=== PATIENT | female | born 1945 | race Caucasian/White ===

== ENCOUNTER → 2016-08-09 | Outpatient (CLI) | payer MEDICARE, OTHER ==
[~2016-08-09] MED LIST: ASPI1TAB83 PO; ATOR-24 PO; CORN1POW2 PO; DOXE10CA PO; DOXY100C76 PO; FURO-85 PO; HYDR-5688 PO; LEVO100T7 PO; LEVO88TA3 PO; METO25TA56 PO; NAPR1TAB9 PO; POLY335025 PO; POTA8CAP6 PO; PRM625 PO; RSTOPS OPB; ZOLP10TA6 PO; [UNRECOGNIZED DRUG - CODE] IV; [UNRECOGNIZED DRUG - CODE] TOP
[2016-08-09 10:17] LABS: ALT/SGPT 27 U/L (12-78); BLOOD UREA NITROGEN 13 mg/dl (7-18); CALCIUM 8.8 mg/dl (8.5-10.1); CARBON DIOXIDE 27 mmol/L (21-32); CHLORIDE 97 mmol/L (98-107); CHOLESTEROL 110 mg/dl (0-200); GLUCOSE 83 mg/dl (70-99); SODIUM 132 mmol/L (136-145); TRIGLYCERIDES 99 mg/dl (0-150); VERY LOW DENSITY LIPOPROT CALC 20 mg/dl
[2016-08-09 10:21] LABS: HEMATOCRIT 36.3 % (37-47); MEAN CELL VOLUME 90.3 fL (80-100); MEAN CORPUSCULAR HEMOGLOBIN 31.1 pg (25-34); MEAN CORPUSCULAR HGB CONC 34.4 g/dl (32-36); MEAN PLATELET VOLUME 10.7 fL (7.4-10.4); PLATELET COUNT 198 K/uL (130-400); RED BLOOD COUNT 4.02 M/uL (4.2-5.4); WHITE BLOOD COUNT 2.38 K/uL (4.8-10.8)
[2016-08-09 10:26] LABS: ALB/GLOB RATIO 0.7 (0.9-2); ALKALINE PHOSPHATASE 90 U/L (45-117); AST/SGOT 29 U/L (15-37); CHOLESTEROL/HDL RATIO 1.8; HDL CHOLESTEROL 60 mg/dl; LDL CHOLESTEROL CALCULATED 30 mg/dl
[2016-08-09 10:39] LABS: BASO % 0.4 %; BASO ABS # 0.01 K/uL (0-0.2); COMPLETE YES; EOS % 1.3 %; LYMPH % 52.5 %; LYMPH ABS # 1.25 K/uL (1.2-3.4); MONO % 9.7 %; NEUT % 36.1 %
== END | disposition home or self-care (01) ==
LOC: C.LAB1850 08:43
PROVIDERS: ATTEND Internal Medicine
DX: G61.81 Chronic inflammatory demyelinating polyneuritis (principal); I25.10 Atherosclerotic heart disease of native coronary artery without angina pectoris; E55.9 Vitamin D deficiency, unspecified; E03.9 Hypothyroidism, unspecified

== ENCOUNTER → 2016-10-28 | Outpatient (CLI) | payer MEDICARE, OTHER ==
[~2016-10-28] MED LIST changes: +BROM0.07; +CYCL0.052 OP; +DIFL0.0519; +PRMVC PV
--- NOTE | 2016-10-28 16:06 | MAMMOGRAPHY REPORT ---
BILATERAL DIGITAL SCREENING MAMMOGRAM WITH CAD: 10/28/2016 CLINICAL HISTORY: Routine screening. Patient has no complaints. TECHNIQUE: Bilateral CC and MLO views were obtained. Current study was also evaluated with a Comput er Aided Detection (CAD) system. COMPARISON: Comparison is made to exams dated: 07/27/2014 mammogram, 07/26/2013 mammogram, 07/24/2012 mira mogram, 07/22/2011 mammogram, 07/19/2010 mammogram, and 07/18/2009 mammogram - [facility]. BREAST COMPOSITION: The tissue of both breasts is heterogeneously dense, which may obscure small ma sses. FINDINGS: The parenchymal pattern is unchanged. No developing mass, architectural distortion or clu ster of suspicious microcalcifications is seen in either breast. IMPRESSION: ACR BI-RADS CATEGORY 2: BENIGN There is no mammographic evidence of malignancy. A 1 year screening mammogram is recommended. The p atient will receive written notification of the results. Approximately 10% of breast cancers are not detected with mammography. A negative mammographic repor t should not delay biopsy if a clinically suggestive mass is present. Iona Lima M.D. ay/:10/28/2016 15:27:28 Spinner Operator: Trina PERALTA(R)(M), [facility] letter sent: Normal 1/2 BI-RADS Code: ACR BI-RADS Category 2: Benign
== END | disposition home or self-care (01) ==
LOC: C.MAMM 14:58
PROVIDERS: ATTEND Obstetrics & Gynecology
DX: Z12.31 Encounter for screening mammogram for malignant neoplasm of breast (principal); N39.0 Urinary tract infection, site not specified

== ENCOUNTER → 2016-10-28 | Outpatient (CLI) | payer MEDICARE, OTHER | END | disposition home or self-care (01) | LOC: C.LABSPEC 17:15 | PROVIDERS: ATTEND Nurse Practitioner Family | DX: N39.0 Urinary tract infection, site not specified (principal) ==

== ENCOUNTER → 2016-11-04 | Outpatient (CLI) | payer MEDICARE, OTHER | END | disposition home or self-care (01) | LOC: C.LAB 10:06 | PROVIDERS: ATTEND Nurse Practitioner Family | DX: N39.0 Urinary tract infection, site not specified (principal); M35.9 Systemic involvement of connective tissue, unspecified; E03.9 Hypothyroidism, unspecified; E78.5 Hyperlipidemia, unspecified ==

== ENCOUNTER → 2016-11-27 | Outpatient (CLI) | payer MEDICARE, OTHER | END | disposition home or self-care (01) | LOC: C.LABSPEC 10:27 | PROVIDERS: ATTEND Urology | DX: R35.1 Nocturia (principal) ==

== ENCOUNTER → 2016-12-19 | Outpatient (CLI) | payer MEDICARE, OTHER ==
[~2016-12-19] MED LIST changes: -BROM0.07; -CYCL0.052 OP; -DIFL0.0519; -PRMVC PV
[2016-12-19 09:40] LABS: HEMATOCRIT 35.4 % (37-47); MEAN CELL VOLUME 91.9 fL (80-100); MEAN CORPUSCULAR HEMOGLOBIN 31.2 pg (25-34); MEAN CORPUSCULAR HGB CONC 33.9 g/dl (32-36); MEAN PLATELET VOLUME 10.4 fL (7.4-10.4); PLATELET COUNT 181 K/uL (130-400); RED BLOOD COUNT 3.85 M/uL (4.2-5.4)
[2016-12-19 09:58] LABS: BASO % 0.4 %; BASO ABS # 0.01 K/uL (0-0.2); COMPLETE YES; EOS % 1.7 %; LARGE PLATELETS 1+; LYMPH % 48.8 %; LYMPH ABS # 1.17 K/uL (1.2-3.4); MONO % 9.6 %; NEUT % 39.5 %
[2016-12-19 10:00] LABS: ALT/SGPT 27 U/L (12-78); BLOOD UREA NITROGEN 9 mg/dl (7-18); BUN/CREATININE RATIO 12.2 (10-20); CALCIUM 9.1 mg/dl (8.5-10.1); CARBON DIOXIDE 29 mmol/L (21-32); CHLORIDE 99 mmol/L (98-107); CHOLESTEROL 97 mg/dl (0-200); CREATININE 0.74 mg/dl (0.60-1.20); GLUCOSE 85 mg/dl (70-99); POTASSIUM 4.2 mmol/L (3.5-5.1); SODIUM 133 mmol/L (136-145); TRIGLYCERIDES 103 mg/dl (0-150); VERY LOW DENSITY LIPOPROT CALC 21 mg/dl
[2016-12-19 10:10] LABS: ALB/GLOB RATIO 0.7 (0.9-2); ALKALINE PHOSPHATASE 94 U/L (45-117); AST/SGOT 32 U/L (15-37); HDL CHOLESTEROL 49 mg/dl; LDL CHOLESTEROL CALCULATED 27 mg/dl; THYROID STIMULATING HORMONE 0.903 uIu/ml (0.300-4.500)
== END | disposition home or self-care (01) ==
LOC: C.LAB1850 08:16
PROVIDERS: ATTEND Internal Medicine
DX: Z11.59 Encounter for screening for other viral diseases (principal); E03.9 Hypothyroidism, unspecified; E78.5 Hyperlipidemia, unspecified; M35.9 Systemic involvement of connective tissue, unspecified

== ENCOUNTER → 2017-02-06 | Outpatient (CLI) | payer MEDICARE, OTHER ==
[2017-02-06 11:33] LABS: HEMATOCRIT 35.6 % (37-47); MEAN CELL VOLUME 90.6 fL (80-100); MEAN CORPUSCULAR HEMOGLOBIN 30.5 pg (25-34); MEAN CORPUSCULAR HGB CONC 33.7 g/dl (32-36); MEAN PLATELET VOLUME 10.6 fL (7.4-10.4); PLATELET COUNT 180 K/uL (130-400); RED BLOOD COUNT 3.93 M/uL (4.2-5.4); WHITE BLOOD COUNT 2.62 K/uL (4.8-10.8)
[2017-02-06 11:55] LABS: COMPLETE YES; EOSINOPHIL % 0.9 %; LYMPH ABS # 0.64 K/uL (1.2-3.4); LYMPHOCYTE % 24.3 %; NEUTROPHILS % 46.1 %; VARIANT LYM ABS # 0.48 K/uL; VARIANT LYMPHOCYTE % 18.3 %
== END | disposition home or self-care (01) ==
LOC: C.LAB 10:57
PROVIDERS: ATTEND Internal Medicine
DX: D72.819 Decreased white blood cell count, unspecified (principal)

== ENCOUNTER → 2017-02-26 | Outpatient (CLI) | payer MEDICARE, OTHER ==
[~2017-02-26] MED LIST changes: -DOXE10CA PO
== END | disposition home or self-care (01) ==
LOC: C.PAPS 09:01
PROVIDERS: ATTEND Obstetrics & Gynecology
DX: Z12.4 Encounter for screening for malignant neoplasm of cervix (principal)

== ENCOUNTER → 2017-05-20 | Day surgery (SDC) | payer MEDICARE, OTHER ==
[2017-04-24 12:22] VITALS: Ht 165.1 cm; Wt 68.2 kg
[~2017-05-20] VITALS: Ht 165.1 cm; Wt 68.2 kg
[~2017-05-20] MED LIST changes: +500ML BSS 0.3ML EPI 1:1000PF IRRIG ONE; +ACETAMINOPHEN 325 MG TAB PO PRN; +AMVISC PLUS 0.8ML SYRINGE INT OCU ONE; +ATROPINE SULFATE 0.1 MG/ML 5ML SYR IV PRN; +BSS FLUSH ONE; +CYCL0.052 OP; -DOXY100C76 PO; +EpHEDrine SULFATE INJ 50 MG/ML AMP IV PRN; +EpINEphrine INJ 1MG/ML AMP 1 MG/ML AMP ONE; +LACTATED RINGER'S 1000ML 500 ML IV SCH; +LIDOCAINE 3.5% OPH GEL PER APPLICATION CHARGE ONE; +LIDOCAINE HCL 1% MPF 2 ML VIAL ONE; +MIDAZOLAM HCL 1 MG/ML 2ML VIAL ONE; -NAPR1TAB9 PO; +ONDANSETRON INJ 2 MG/ML 2 ML VIAL IV PRN; +PHENYLEPHRINE HCL 10% OP SOLN PER DROP CHARGE OPR SCH; +POVIDONE-IODINE OP SOLN 30 ML BTL ONE; -PRM625 PO; +PRMVC PV; +PROPARACAINE 0.5% OP SOLN PER DROP CHARGE OPR SCH; -RSTOPS OPB; +TOBRAMYCIN/DEXAMETHASONE OPH OINT PER APPLN CHARGE ONE
[2017-05-20] MEDS: PHENYLEPHRINE HCL 2.5% OP SOLN PER DROP CHARGE OPR SCH ×2 (06:45→06:55)
[2017-05-20] MEDS: TROPICAMIDE 1% OP SOLN PER DROP CHARGE OPR SCH ×2 (06:47→06:56)
[2017-05-20] MEDS: CYCLOPENTOLATE HCL 1% OP SOLN PER DROP CHARGE OPR SCH ×2 (06:48→06:57)
[2017-05-20] MEDS: KETOROLAC 0.5% OP SOLN PER DROP CHARGE OPR SCH ×2 (06:49→06:58)
[2017-05-20] MEDS: GATIFLOXACIN OP SOLN PER DROP CHARGE OPR SCH ×2 (07:09→07:11)
--- NOTE | 2017-05-20 07:11 | History & Physical Bridge - SC ---
H&P Re-Evaluation Bridge Note: I have examined the patient, reviewed the History & Physical and in the interval since the performance of the History & Physical I have noted the following changes of clinical significance: Diagnosis: Right Cataract Procedure: Right Cataract Removal with Lens Implant No changes noted
[2017-05-20 07:36] VITALS: BP 133/68; PULSE 58; TEMP 36.4; O2SAT 100
--- NOTE | 2017-05-20 07:38 | Discharge Instructions-SurgCtr ---
Discharge Instructions Date of Service May 20, 2017. Visit Reason for Visit: Cataract Right Eye Discharge Discharge Diagnosis / Problem: cataract Discharge Goals Goal(s): Improve function Activity Recommendations Activity Limitations: per Instructions/Follow-up section Anesthesia . Post Anesthesia Instructions: If you have had General Anesthesia or IV Sedation: * Do not drive today. * Resume driving when surgeon permits. * Do not make important decisions or sign legal documents today. * Call surgeon for: 1. Temperature elevations greater than 101 degrees F. 2. Uncontrollable pain. 3. Excessive bleeding. 4. Persistent nausea and vomiting. 5. Medication intolerance (nausea, vomiting or rash). * For nausea and vomiting use only clear liquids such as: tea, soda, bouillon until nausea subsides, then gradually increase diet as tolerated. * If you have any concerns or questions, call your surgeon's office. If physician is unavailable and it is an emergency, call 911 or go to the nearest emergency room. . Diet Recommendations Home Diet: resume previous diet Procedures Procedures Performed: Right Cataract Phacoemulsification With Intraocular Lens Implant Pending Studies Studies pending at discharge: no Medical Emergencies . Who to Call and When: Medical Emergencies: If at any time you feel your situation is an emergency, please call 911 immediately. . Non-Emergent Contact Non-Emergency issues call your: Grain Drier Operator . . "Provider Documentation" section prepared by Hermilo Covarrubias. .
--- NOTE | 2017-05-20 07:39 | [facility] Operative Report ---
Operative Report Date of Service May 20, 2017. Operative Report 1. PREOPERATIVE DIAGNOSIS: Cataract of the right eye. 2. POSTOPERATIVE DIAGNOSIS: Same. 3. PROCEDURE: Phacoemulsification with intraocular lens implantation of the right eye. SURGEON: Dr. Hermilo Covarrubias. ANESTHESIA: Topical Lidocaine gel, 1% Non- Preserved intracameral Lidocaine, and monitored intravenous sedation. INDICATIONS FOR THE PROCEDURE: The patient is a 72 - year-old female with a history of cataract of the right eye causing significant visual impairment. The details of the proposed procedure were explained to the patient who asked appropriate questions and following discussion of all risks, benefits and alternatives agreed to have the procedure done. 4. OPERATION AND FINDINGS: DESCRIPTION OF PROCEDURE: After informed consent was obtained, the patient was brought to the Operating Room at the [facility]. The patient was placed in a supine position and then the right eye was prepped and draped in the usual sterile fashion for intraocular surgery. A drop of topical Lidocaine gel was placed in the operative eye. A wire lid speculum was then placed in the fornices. A corneal paracentesis was then created temporally. The Non-Preserved Lidocaine was then instilled into the anterior chamber. The anterior chamber was then pressurized with viscoelastic. A 2.0 mm clear corneal incision was then created temporally. A cystotome was inserted into the anterior chamber and used to create a tear in the anterior lens capsule. This capsular tear was then used to create a small flap and the flap was dragged in a counterclockwise direction in order to create a continuous curvilinear capsulorrhexis. Hydrodissection was accomplished with balanced salt solution. Phacoemulsification of the lens nucleus was then performed in a standard [id number] technique. The phaco time was 24 seconds with an average power of 7 %. The remaining cortical material was removed using irrigation aspiration. The capsular bag was then filled with viscoelastic. A [employer] MI60L +15.0 diopters lens was then loaded into the injector and injected into the capsular bag. The remaining viscoelastic was removed with the irrigation aspiration handpiece. The wound was hydrated and then checked and found to be watertight. The intraocular pressure was checked and found to be adequate. The wire lid speculum was removed and the patient's face was cleaned and dried. TobraDex ointment was placed in the inferior fornix. The patient was discharged to the Recovery Room having tolerated the procedure well. There were no complications. The patient will be seen tomorrow in the office for follow-up. I attest to the content of the Intraoperative Record and any orders documented therein. Any exceptions are noted below.
--- NOTE | 2017-05-20 08:07 | Anesthesia Progress Nt - [facility] ---
Anesthesia Post Op Note Date & Time May 20, 2017 at 08:06 Vital Signs Pain Intensity: 0 Vital Signs Past 12 Hours Date Time Temp Pulse Resp B/P (MAP) Pulse Ox O2 Delivery O2 Flow Rate FiO2 05/20/17 07:36 36.4 58 16 133/68 (89) 100 Room Air 05/20/17 06:35 36.7 68 18 155/84 (107) 100 Room Air Notes Mental Status: alert / awake / arousable, participated in evaluation Pt Amnestic to Procedure: Yes Nausea / Vomiting: adequately controlled Pain: adequately controlled Airway Patency, RR, SpO2: stable & adequate BP & HR: stable & adequate Hydration State: stable & adequate Anesthetic Complications: no major complications apparent
== END | disposition home or self-care (01) ==
LOC: X.SURG 06:17
PROVIDERS: ATTEND Ophthalmology
DX: H26.9 Unspecified cataract (principal); I10 Essential (primary) hypertension; E03.9 Hypothyroidism, unspecified; E78.5 Hyperlipidemia, unspecified; I25.10 Atherosclerotic heart disease of native coronary artery without angina pectoris; Z95.1 Presence of aortocoronary bypass graft; K21.9 Gastro-esophageal reflux disease without esophagitis; I25.2 Old myocardial infarction; Z88.2 Allergy status to sulfonamides; Z88.1 Allergy status to other antibiotic agents; Z98.890 Other specified postprocedural states; Z98.818 Other dental procedure status; Z90.89 Acquired absence of other organs; Z80.2 Family history of malignant neoplasm of other respiratory and intrathoracic organs; Z80.7 Family history of other malignant neoplasms of lymphoid, hematopoietic and related tissues; Z83.3 Family history of diabetes mellitus

== ENCOUNTER → 2017-09-01 | Outpatient (CLI) | payer MEDICARE, OTHER ==
[~2017-09-01] MED LIST changes: -500ML BSS 0.3ML EPI 1:1000PF IRRIG ONE; -ACETAMINOPHEN 325 MG TAB PO PRN; -AMVISC PLUS 0.8ML SYRINGE INT OCU ONE; -ATROPINE SULFATE 0.1 MG/ML 5ML SYR IV PRN; +BROM0.07; -BSS FLUSH ONE; +DIFL0.0519; -EpHEDrine SULFATE INJ 50 MG/ML AMP IV PRN; -EpINEphrine INJ 1MG/ML AMP 1 MG/ML AMP ONE; -LACTATED RINGER'S 1000ML 500 ML IV SCH; -LIDOCAINE 3.5% OPH GEL PER APPLICATION CHARGE ONE; -LIDOCAINE HCL 1% MPF 2 ML VIAL ONE; -MIDAZOLAM HCL 1 MG/ML 2ML VIAL ONE; -ONDANSETRON INJ 2 MG/ML 2 ML VIAL IV PRN; -PHENYLEPHRINE HCL 10% OP SOLN PER DROP CHARGE OPR SCH; -POVIDONE-IODINE OP SOLN 30 ML BTL ONE; -PROPARACAINE 0.5% OP SOLN PER DROP CHARGE OPR SCH; -TOBRAMYCIN/DEXAMETHASONE OPH OINT PER APPLN CHARGE ONE
[2017-09-01 09:56] LABS: HEMATOCRIT 33.7 % (37-47); HEMOGLOBIN 11.7 g/dL (12.0-16.0); MEAN CELL VOLUME 89.4 fL (80-100); MEAN CORPUSCULAR HGB CONC 34.7 g/dl (32-36); MEAN PLATELET VOLUME 10.2 fL (7.4-10.4); PLATELET COUNT 221 K/uL (130-400); RED CELL DISTRIBUTION WIDTH CV 13.9 % (11.5-14.5); RED CELL DISTRIBUTION WIDTH SD 45.5 fL (36.4-46.3); WHITE BLOOD COUNT 2.53 K/uL (4.8-10.8)
[2017-09-01 10:13] LABS: ALBUMIN 3.5 gm/dl (3.4-5.0); ALT/SGPT 24 U/L (12-78); BLOOD UREA NITROGEN 11 mg/dl (7-18); CALCIUM 9.2 mg/dl (8.5-10.1); CARBON DIOXIDE 29 mmol/L (21-32); CHOLESTEROL 102 mg/dl (0-200); CREATININE 0.66 mg/dl (0.60-1.20); GLUCOSE 80 mg/dl (70-99); POTASSIUM 3.8 mmol/L (3.5-5.1); SODIUM 129 mmol/L (136-145)
[2017-09-01 10:24] LABS: ALKALINE PHOSPHATASE 113 U/L (45-117); AST/SGOT 30 U/L (15-37); LDL CHOLESTEROL CALCULATED 31 mg/dl
== END | disposition home or self-care (01) ==
LOC: C.LAB1850 08:42
PROVIDERS: ATTEND Internal Medicine
DX: E78.5 Hyperlipidemia, unspecified (principal); E03.9 Hypothyroidism, unspecified; R74.8 Abnormal levels of other serum enzymes; G61.81 Chronic inflammatory demyelinating polyneuritis

== ENCOUNTER → 2017-09-18 | Outpatient (CLI) | payer MEDICARE, OTHER ==
[2017-09-18 13:00] LABS: BLOOD UREA NITROGEN 14 mg/dl (7-18); CALCIUM 8.9 mg/dl (8.5-10.1); CARBON DIOXIDE 27 mmol/L (21-32); CREATININE 0.65 mg/dl (0.60-1.20); GLUCOSE 88 mg/dl (70-99); POTASSIUM 4.4 mmol/L (3.5-5.1); SODIUM 126 mmol/L (136-145)
== END | disposition home or self-care (01) ==
LOC: C.LAB 11:23
PROVIDERS: ATTEND Internal Medicine
DX: D72.819 Decreased white blood cell count, unspecified (principal)

== ENCOUNTER → 2017-09-25 | Outpatient (CLI) | payer MEDICARE, OTHER ==
[2017-09-25 15:10] LABS: BLOOD UREA NITROGEN 14 mg/dl (7-18); CALCIUM 8.7 mg/dl (8.5-10.1); CARBON DIOXIDE 29 mmol/L (21-32); CREATININE 0.73 mg/dl (0.60-1.20); GLUCOSE 101 mg/dl (70-99); POTASSIUM 4.1 mmol/L (3.5-5.1); SODIUM 130 mmol/L (136-145)
== END | disposition home or self-care (01) ==
LOC: C.LAB1850 13:53
PROVIDERS: ATTEND Internal Medicine
DX: E87.1 Hypo-osmolality and hyponatremia (principal)

== ENCOUNTER → 2017-10-29 | Outpatient (CLI) | payer MEDICARE, OTHER ==
[~2017-10-29] MED LIST changes: -BROM0.07; -DIFL0.0519
--- NOTE | 2017-10-29 15:07 | MAMMOGRAPHY REPORT ---
BILATERAL DIGITAL SCREENING MAMMOGRAM TOMOSYNTHESIS WITH CAD: 10/29/2017 CLINICAL HISTORY: Routine screening. Patient has no complaints. TECHNIQUE: Breast tomosynthesis in addition to standard 2D mammography was performed. Current study was also evaluated with a Computer Aided Detection (CAD) system. COMPARISON: Comparison is made to exams dated: 10/28/2016 mammogram, 07/27/2014 mammogram, 07/26/2013 mamm ogram, 07/18/2009 mammogram, 07/22/2011 mammogram, and 07/19/2010 mammogram - [facility]. BREAST COMPOSITION: The tissue of both breasts is heterogeneously dense, which may obscure small mas ses. FINDINGS: The parenchymal pattern is unchanged. No developing mass, architectural distortion or clus ter of suspicious microcalcifications is seen in either breast. IMPRESSION: ACR BI-RADS CATEGORY 2: BENIGN There is no mammographic evidence of malignancy. A 1 year screening mammogram is recommended. The pa tient will receive written notification of the results. Approximately 10% of breast cancers are not detected with mammography. A negative mammographic report should not delay biopsy if a clinically suggestive mass is present. Iona Lima M.D. ay/:10/29/2017 12:44:51 Pivot End Polisher: Bessy PERALTA(Bryn)(Vikki), [facility] letter sent: Normal 1/2 BI-RADS Code: ACR BI-RADS Category 2: Benign
== END | disposition home or self-care (01) ==
LOC: C.MAMM 11:03
PROVIDERS: ATTEND Obstetrics & Gynecology
DX: Z12.31 Encounter for screening mammogram for malignant neoplasm of breast (principal)

== ENCOUNTER → 2018-01-21 | Outpatient (CLI) | payer MEDICARE, OTHER ==
[~2018-01-21] MED LIST changes: -PRMVC PV
[2018-01-21 10:05] LABS: HEMATOCRIT 34.8 % (37-47); HEMOGLOBIN 11.8 g/dL (12.0-16.0); MEAN CELL VOLUME 90.6 fL (80-100); MEAN CORPUSCULAR HEMOGLOBIN 30.7 pg (25-34); MEAN CORPUSCULAR HGB CONC 33.9 g/dl (32-36); MEAN PLATELET VOLUME 10.2 fL (7.4-10.4); PLATELET COUNT 199 K/uL (130-400); RED CELL DISTRIBUTION WIDTH CV 13.8 % (11.5-14.5); RED CELL DISTRIBUTION WIDTH SD 45.5 fL (36.4-46.3); WHITE BLOOD COUNT 2.72 K/uL (4.8-10.8)
[2018-01-21 10:27] LABS: ALBUMIN 3.6 gm/dl (3.4-5.0); ALKALINE PHOSPHATASE 100 U/L (45-117); ALT/SGPT 26 U/L (12-78); AST/SGOT 32 U/L (15-37); BLOOD UREA NITROGEN 11 mg/dl (7-18); CALCIUM 8.8 mg/dl (8.5-10.1); CARBON DIOXIDE 26 mmol/L (21-32); CHOLESTEROL 100 mg/dl (0-200); CREATININE 0.67 mg/dl (0.60-1.20); GLUCOSE 84 mg/dl (70-99); LDL CHOLESTEROL CALCULATED 29 mg/dl; POTASSIUM 3.9 mmol/L (3.5-5.1); SODIUM 129 mmol/L (136-145); TOTAL PROTEIN 8.9 gm/dl (6.4-8.2)
== END | disposition home or self-care (01) ==
LOC: C.LAB1850 08:35
PROVIDERS: ATTEND Internal Medicine
DX: E78.5 Hyperlipidemia, unspecified (principal); G61.81 Chronic inflammatory demyelinating polyneuritis; E03.9 Hypothyroidism, unspecified; E55.9 Vitamin D deficiency, unspecified

== ENCOUNTER 2021-02-12 | Observation (INO) ==
[2021-02-12] MEDS ORDERED: ACETAMINOPHEN 1,000 MG/100 ML VIAL IV STA (00:31)
[2021-02-12] MEDS ORDERED: FAMOTIDINE 20MG/5ML IV PUSH IV STA (00:31)
[2021-02-12] MEDS ORDERED: NITROGLYCERIN 2% OINTMENT 30GM TUBE EXT STA (00:31)
[2021-02-12 00:46] LABS: Hemoglobin 10.9 g/dL (12.0-16.0); Mean Corpuscular Hemoglobin 31.8 pg (25-34); Mean Corpuscular Hgb Conc 34.1 g/dL (32-36); Mean Corpuscular Volume 93.3 fL (80-100); Platelet Count 199 K/uL (130-400); RDW Coefficient of Variation 13.9 % (11.5-14.5); RDW Standard Deviation 47.8 fL (36.4-46.3); Red Blood Count 3.43 M/uL (4.2-5.4); White Blood Count 2.27 K/uL (4.8-10.8)
--- NOTE | 2021-02-12 00:54 | Emergency Department Note ---
History of Present Illness General Chief complaint: Chest Pain Stated complaint: CHEST PAIN,HIGH BLOOD PRESSURE Time Seen by Provider: 02/12/21 00:07 Source: patient and family Mode of arrival: ambulatory Limitations: no limitations History of Present Illness Provider complaint: chest pain Onset (ago): hour(s) Location: chest Maximum Pain Intensity: 8 Associated symptoms: no loss of appetite, no nausea/vomiting, no shortness of b reath or no syncope Treatments prior to arrival: other This is a 76-year-old female presents emergency department complaining of chest pain. She states chest pain began around noon today. She initially thought it was perhaps related to something she ate or severe indigestion as she does have a history of GERD. She takes she does take medication for her stomach daily. She states she knows to avoid certain foods that will exacerbate her reflux type symptoms. She states the symptoms were constant throughout the day and seem to worsen this evening after dinner. She states she did not have as much of an appetite as she still had this persistent chest pain. She states the pain was nonradiating. She does have chronic neck and back pain which is unrelated and unchanged. She states there was no accompanying lightheadedness/dizziness, shortness of breath, nausea or vomiting. She denies any recent change in medications. She states she also noticed that her blood pressure was higher today compared to normal and she checks her blood pressure routinely. bedside presents accompanying recent documentation of her last cardiology visit and most recent echo. Of note patient has an EF of 45 to 50%. No significant valvular disease according to the report. Patient states she did have a CABG approximately 5 years ago and does follow with Dr. Martinez. states she has a hx of low WBC's due to her intermittent IVIG. Pt seen during a time of high acuity and national emergency pandemic while wearing PPE. Home Medications Medication Instructions Recorded Confirmed Type minoxidil 2 % topical solution 1 ml TOPICAL DAILY 02/24/18 02/12/21 History (Rogaine) polyethylene glycol 3350 17 gram 17 g PO HS 02/24/18 02/12/21 History oral powder packet (Miralax) aluminum-magnesium hydroxide 200 5 ml PO Q6H PRN 07/30/18 02/12/21 History mg-200 mg/5 mL oral suspension cyclosporine 0.05 % eye drops in a 1 drp OPHTHALMIC (EYE) BID 02/21/19 02/12/21 History dropperette (Restasis) esomeprazole magnesium 40 mg 40 mg PO QAM #90 cap 02/21/19 02/12/21 History capsule,delayed release cholecalciferol (vitamin D3) 25 25 mcg PO QPM 07/27/19 02/12/21 History mcg (1,000 unit) capsule conjugated estrogens 0.625 mg/gram 0.3125 mg PV .COMPLEX #30 gm 11/23/19 02/12/21 Rx vaginal cream (Premarin) wheat dextrin 3 gram/3.5 gram oral 1 packet PO DAILY 01/25/20 02/12/21 History powder packet (Benefiber Clear Sugar Free(dextrin)) levothyroxine 88 mcg tablet 88 mcg PO 3XWK #90 tab 05/16/20 02/12/21 Rx (Synthroid) levothyroxine 112 mcg tablet 112 mcg PO 4XWK 90 Days #90 tab 06/06/20 02/12/21 Rx (Synthroid) immune glob G 40 gram/400 See Rx Instructions IV .COMPLEX 06/07/20 02/12/21 Rx mL(10%)-gly-IgA ave 46 mcg/mL #400 ml injection soln (Gamunex-C) furosemide 20 mg tablet (Lasix) 20 mg PO DAILY PRN #20 tab 06/14/20 02/12/21 Rx potassium chloride 10 mEq 10 meq PO DAILY PRN #20 tab 06/14/20 02/12/21 Rx tablet,extended release aspirin 81 mg tablet,delayed 81 mg PO DAILY 10/03/20 02/12/21 History release metoprolol tartrate 25 mg tablet 12.5 mg PO BID #180 tab 11/21/20 02/12/21 Rx zolpidem 5 mg tablet (Ambien) 2.5 - 5 mg PO HS PRN #15 tab 01/25/21 02/12/21 Rx hydrocodone 5 mg-acetaminophen 325 1 tab PO .COMPLEX #131 tab 02/08/21 02/12/21 Rx mg tablet atorvastatin 20 mg tablet (Lipitor) 40 mg PO HS 02/12/21 02/12/21 History biotin 5,000 mcg sublingual tablet 5,000 mcg SUBLINGUAL DAILY 02/12/21 02/12/21 History Allergies Allergy/AdvReac Type Severity Reaction Status Date / Time sulfamethoxazole Allergy Intermediate severe Verified 02/12/21 02:33 stiff neck, nausea erythromycin base Allergy Unknown UNKNOWN - Verified 02/12/21 02:33 A CHILD trimethoprim AdvReac Intermediate SEVERE Verified 02/12/21 02:33 STIFF NECK, NAUSEA, "HEARD BONES CRUNCH X2" amoxicillin AdvReac Mild Gastrointestinal Verified 02/12/21 02:33 Upset doxycycline AdvReac Mild nausea / Verified 02/12/21 02:33 vomiting / syncope Past Med/Surg History Medical History Aortic regurgitation Atrial fibrillation SECONDARY TO CABG-MD DOES NOT BELIEVE PT WILL HAVE FURTHER ISSUES WITH AFIB Chest pain Coronary artery disease Cutaneous lupus erythematosus Dyslipidemia Heart disease Heart murmur Hx of fracture Hyperlipidemia Hypertension Hypothyroidism Mitral regurgitation Myocardial infarct Myocardial Infarction 2014 Nausea and vomiting after administration of anesthetic agent Peripheral neuropathy Sjoegren syndrome Tick bite Surgical History History of bilateral cataract extraction History of biopsy nerve biopsy in leg History of cardiac cath 2014 History of carpal tunnel release of both wrists History of colonoscopy History of esophagogastroduodenoscopy (EGD) History of lumbar discectomy History of tonsillectomy History of wisdom tooth extraction S/P CABG x 2 05/2015 @ [facility] – [place]--follows with Dr. Martinez Status post cervical spinal fusion C5-C6; difficulty moving neck backwards Family History Family/Other Family history of diabetes mellitus cousin Grandmother (Maternal) Family history of diabetes mellitus Stroke Mother Family hx of colon cancer Colorectal cancer Aunt Breast cancer Father Prostate cancer Brother Prostate cancer Other No family history of adverse response to anesthesia Denies family history of Ovarian cancer Myocardial infarction Lung cancer Social History Smoking Status: Never smoker Second Hand Exposure: No; Hx Alcohol Use: No Hx Substance Use: No Preferred Language: Mosotho Communication Ability: Effective Visual Impairment: No Limitations Hearing Ability: Normal Shotblast Equipment Operator Required: No Beliefs That Will Affect Care: None Current Living Situation: Spouse Feels Safe at Home: Yes Childhood Exposure to Second-Hand Smoke: Yes (father) Seatbelt Use: always Assistive Devices: Glasses Review of Systems A total of 10 systems reviewed and were otherwise negative All systems reviewed & are unremarkable except as noted in HPI & below Physical Exam Vital Signs Vital Signs - 24 hr 02/12/21 00:04 Temperature 36.8 C Temperature Source Temporal Artery Scan Pulse Rate 70 Respiratory Rate 20 Respiratory Effort / Characteristics Non-Labored Respiratory Depth Normal Blood Pressure 177/86 H Blood Pressure Mean 116 Pulse Oximetry 100 Oxygen Delivery Method Room Air Sepsis Recent Fever Within 48 Hours No Sepsis New/Unexplained Change in Mental Status N/A Sepsis Action Taken by Nursing No Action Required GENERAL: alert, well appearing, well nourished, no distress, non-toxic EYE EXAM: normal conjunctiva, PERRL and EOM's grossly intact OROPHARYNX: no exudate, no erythema, lips, buccal mucosa, and tongue normal and mucous membranes are moist NECK: supple, no nuchal rigidity, no adenopathy, non-tender LUNGS: Clear to auscultation. Normal chest wall mechanics, no w/r/r HEART: no murmurs, S1 normal and S2 normal ABDOMEN: abdomen soft, non-tender, normo-active bowel sounds, no masses, no rebound or guarding. BACK: Back is symmetrical on inspection and there is no deformity, no midline tenderness, no CVA tenderness. SKIN: no rashes and no bruising UPPER EXTREMITIES: upper extremities are grossly normal. FROM, nml pulses b/l. LOWER EXTREMITIES: No pitting edema. FROM, nml pulses b/l. NEURO EXAM: Normal sensorium, cranial nerves II-XII grossly intact, normal speech, no gross weakness of arms, no gross weakness of legs. Gross sensation intact. Course Administered Medications Hydrocodone Bitart/Acetaminophen (Hydrocodone/Acetamophen 5/325mg Tab) 1 tab PO Q6H PRN PRN Reason: Pain Stop: 02/26/21 06:39 Last Admin: 02/12/21 20:53 Dose: 1 tab Documented by: [id number] Al Hydrox/Mg Hydrox/Simethicone (Aluminum/Magnesium Susp 30 Ml Udc) 15 ml PO Q6H PRN PRN Reason: Dyspepsia Stop: 03/14/21 16:48 Last Admin: 02/12/21 17:25 Dose: 15 ml Documented by: [id number] Atorvastatin Calcium (Atorvastatin 40 Mg Tab) 40 mg PO HS ALONDRA Stop: 03/14/21 20:59 Last Admin: 02/12/21 20:37 Dose: 40 mg Documented by: [id number] Famotidine 20 mg/ Syringe 5 mls @ 2.5 mls/min IV BID ALONDRA Stop: 03/14/21 08:59 Last Admin: 02/12/21 20:36 Dose: 2.5 mls/min Documented by: [id number] Admin: 02/12/21 08:45 Dose: 2.5 mls/min Documented by: [id number] Levothyroxine Sodium (Levothyroxine Sodium 112 Mcg Tablet) 112 mcg PO [id number] ALONDRA Stop: 03/14/21 07:29 Last Admin: 02/12/21 08:46 Dose: 112 mcg Documented by: [id number] Losartan Potassium (Losartan Potassium 25 Mg Tab) 25 mg PO QAM [facility] Stop: 03/14/21 13:59 Last Admin: 02/12/21 14:33 Dose: 25 mg Documented by: [id number] Metoprolol Tartrate (Metoprolol Tartrate 25 Mg Tab) 12.5 mg PO BID [facility] Stop: 03/14/21 08:59 Last Admin: 02/12/21 20:36 Dose: 12.5 mg Documented by: [id number] Admin: 02/12/21 08:45 Dose: 12.5 mg Documented by: [id number] Miscellaneous (Restasis ~ Order Awaiting Action) 1 ea N/A QS [facility] Stop: 03/14/21 07:59 Last Admin: 02/12/21 23:05 Dose: Not Given Documented by: [id number] Admin: 02/12/21 17:13 Dose: Not Given Documented by: [id number] Admin: 02/12/21 08:39 Dose: Not Given Documented by: [id number] Morphine Sulfate (Morphine Sulfate 2 Mg/Ml Carp) 2 mg IV Q30M PRN PRN Reason: Chest Pain Stop: 02/26/21 06:39 Last Admin: 02/12/21 10:02 Dose: 2 mg Documented by: [id number] Polyethylene Glycol (Polyethylene (Miralax) 17 Gm Pack) 17 gm PO [facility] Stop: 03/14/21 20:59 Last Admin: 02/12/21 20:37 Dose: 17 gm Documented by: [id number] Psyllium Hydrophilic Mucilloid (Psyllium 58.6% Powder Packet) 1 pkt PO DAILY [facility] Stop: 03/14/21 08:59 Last Admin: 02/12/21 08:45 Dose: Not Given Documented by: [id number] Zolpidem Tartrate (Zolpidem Tartrate 5 Mg Tab) 5 mg PO HS PRN PRN Reason: Sleep Stop: 03/14/21 21:08 Last Admin: 02/12/21 22:13 Dose: 5 mg Documented by: [id number] Discontinued Medications Al Hydrox/Mg Hydrox/Simethicone (Aluminum/Magnesium Susp 30 Ml Udc) 15 ml PO NOW STA Stop: 02/12/21 02:10 Last Admin: 02/12/21 02:26 Dose: 15 ml Documented by: [id number] Al Hydrox/Mg Hydrox/Simethicone (Aluminum/Magnesium/Simeth (Maalox Max) 30 Ml Udc) 15 ml PO NOW STA Stop: 02/12/21 17:05 Last Admin: 02/12/21 17:27 Dose: Not Given Documented by: [id number] Aspirin (Aspirin Chew 324 Mg) 324 mg PO NOW STA Stop: 02/12/21 03:35 Last Admin: 02/12/21 03:50 Dose: 324 mg Documented by: [id number] Famotidine (Famotidine 20mg/5ml Iv Push) 20 mg IV ONE STA Stop: 02/12/21 00:32 Last Admin: 02/12/21 00:53 Dose: 20 mg Documented by: [id number] Fentanyl Citrate (Fentanyl Citrate 100 Mcg/2 Ml Vial) Confirm Administered Dose 100 mcg .ROUTE .STK-MED ONE Stop: 02/12/21 12:23 Last Admin: 02/12/21 13:15 Dose: 100 mcg Documented by: [id number] Fentanyl Citrate (Fentanyl Citrate 100 Mcg/2 Ml Vial) Confirm Administered Dose 100 mcg .ROUTE .STK-MED ONE Stop: 02/12/21 13:28 Last Admin: 02/12/21 13:30 Dose: 25 mcg Documented by: [id number] Heparin Sodium (Porcine) (Heparin (Porcine) 1000 Unit/Ml 10 Ml (Medical Care Administrator Use Only)) Confirm Administered Dose 10,000 units .ROUTE .STK-MED ONE Stop: 02/12/21 12:23 Last Admin: 02/12/21 13:16 Dose: 5,000 units Documented by: [id number] Heparin Sodium/Sodium Chloride (Heparin In Nss Infusion 1000 Unit/500 Ml (2 U/Ml) Bag) Confirm Administered Dose 3,000 units IV .STK-MED ONE Stop: 02/12/21 12:23 Last Admin: 02/12/21 13:16 Dose: 3,000 units Documented by: [id number] Hydralazine HCl (Hydralazine Hcl 20 Mg/Ml Vial) Confirm Administered Dose 20 mg .ROUTE .STK-MED ONE Stop: 02/12/21 13:27 Last Admin: 02/12/21 13:30 Dose: 10 mg Documented by: [id number] Acetaminophen (Ofirmev) 1,000 mg in 100 mls @ 400 mls/hr IV NOW STA Stop: 02/12/21 00:45 Last Infusion: 02/12/21 02:26 Dose: 0 mls/hr Documented by: [id number] Admin: 02/12/21 00:49 Dose: 400 mls/hr Documented by: [id number] Sodium Chloride (Nss) 250 mls @ 75 mls/hr IV .Q3H20M ALONDRA Stop: 02/12/21 17:19 Last Infusion: 02/12/21 18:43 Dose: 0 mls/hr Documented by: [id number] Admin: 02/12/21 14:37 Dose: 75 mls/hr Documented by: [id number] Ioversol (Optiray 320 125ml) 120 ml IV ONCE ONE Stop: 02/12/21 17:53 Last Admin: 02/12/21 17:54 Dose: 120 ml Documented by: [id number] Midazolam HCl (Midazolam Hcl 1 Mg/Ml 2ml Vial) Confirm Administered Dose 2 mg .ROUTE .STK-MED ONE Stop: 02/12/21 12:23 Last Admin: 02/12/21 13:18 Dose: 2 mg Documented by: [id number] Midazolam HCl (Midazolam Hcl 1 Mg/Ml 2ml Vial) Confirm Administered Dose 2 mg .ROUTE .STK-MED ONE Stop: 02/12/21 13:00 Last Admin: 02/12/21 13:18 Dose: 1 mg Documented by: [id number] Morphine Sulfate (Morphine Sulfate 2 Mg/Ml Carp) 2 mg IV NOW STA Stop: 02/12/21 02:10 Last Admin: 02/12/21 02:27 Dose: 2 mg Documented by: [id number] Morphine Sulfate (Morphine Sulfate 2 Mg/Ml Carp) 2 mg IV NOW STA Stop: 02/12/21 05:17 Last Admin: 02/12/21 05:19 Dose: 2 mg Documented by: [id number] Nicardipine HCl (Nicardipine Hcl Inj 2.5 Mg/Ml 10 Ml Amp) Confirm Administered Dose 25 mg .ROUTE .STK-MED ONE Stop: 02/12/21 12:23 Last Admin: 02/12/21 13:18 Dose: 25 mg Documented by: [id number] Nitroglycerin (Nitroglycerin 2% Ointment 30gm Tube) 1 inch EXT NOW STA Stop: 02/12/21 00:32 Last Admin: 02/12/21 00:53 Dose: 1 inch Documented by: [id number] Nitroglycerin/Dextrose (Nitroglycerin/D5w 100mcg/Ml 20ml Syr) Confirm Administered Dose 2,000 mcg .ROUTE .STK-MED ONE Stop: 02/12/21 12:23 Last Admin: 02/12/21 13:18 Dose: 2,000 mcg Documented by: [id number] Ondansetron HCl (Ondansetron Inj 2 Mg/Ml 2 Ml Vial) 4 mg IV NOW STA Stop: 02/12/21 02:10 Last Admin: 02/12/21 02:26 Dose: 4 mg Documented by: [id number] Medical Decision Making Differential Diagnosis Differential diagnoses includes but is not limited to acute coronary syndrome, myocardial infarction, pericarditis, pulmonary embolus, aortic dissection, pneumonia, pneumothorax, musculoskeletal, shingles, esophageal. Medical Records Attestation: I reviewed the patient's medical records. Home Medications Current Medication List: was personally reviewed by me Laboratory Data Attestation: I reviewed the patient's lab results. Result diagrams: 02/12/21 00:30 02/12/21 01:30 Lab Results 02/12/21 02/12/21 02/12/21 Range/Units 00:30 00:30 00:30 WBC 2.27 L (4.8-10.8) K/uL RBC 3.43 L (4.2-5.4) M/uL Hgb 10.9 L (12.0-16.0) g/dL Hct 32.0 L (37-47) % MCV 93.3 (80-100) fL MCH 31.8 (25-34) pg MCHC 34.1 (32-36) g/dL RDW Std Deviation 47.8 H (36.4-46.3) fL RDW Coeff of Mitzi 13.9 (11.5-14.5) % Plt Count 199 (130-400) K/uL MPV 10.0 (7.4-10.4) fL Immature Gran % (Auto) 0.4 % Neut % (Auto) 43.7 % Lymph % (Auto) 41.9 % [place] % (Auto) 13.2 % Eos % (Auto) 0.4 % Baso % (Auto) 0.4 % Neut # (Auto) 0.99 L* (1.4-6.5) K/uL Lymph # (Auto) 0.95 L (1.2-3.4) K/uL [place] # (Auto) 0.30 (0.11-0.59) K/uL Eos # (Auto) 0.01 (0-0.5) K/uL Baso # (Auto) 0.01 (0-0.2) K/uL Immature Gran # (Auto) 0.01 (0.00-0.02) K/uL RBC Morphology Unremarkable Sodium 124 L (136-145) mmol/L Potassium (3.5-5.1) mmol/L Chloride 93 L (98-107) mmol/L Carbon Dioxide 26 (21-32) mmol/L Anion Gap 5.0 (3-11) BUN 14 (7-18) mg/dl Creatinine 0.70 (0.6-1.2) mg/dl Est Cr Clr Drug Dosing 67.0 ml/min Est GFR ( Amer) 97.5 ml/min Est GFR (Non-Af Amer) 84.2 ml/min BUN/Creatinine Ratio 20.1 H (10-20) Glucose 92 (70-99) mg/dl Calcium 8.9 (8.5-10.1) mg/dl Magnesium (1.8-2.4) mg/dl Total Bilirubin 0.4 (0.2-1) mg/dl AST (15-37) U/L ALT 27 (12-78) U/L Alkaline Phosphatase 115 (45-117) U/L Troponin I 0.096 H* (0-0.045) ng/ml NT-Pro-B Natriuret Pep 950 (0-1800) pg/ml Total Protein 10.1 H (6.4-8.2) gm/dl Albumin 3.4 (3.4-5.0) gm/dl Globulin 6.7 H (2.5-4.0) gm/dl Albumin/Globulin Ratio 0.5 L (0.9-2) Lipase 205 (73-393) U/L Lyme Disease IgG Ab Cancelled Lyme Disease IgM Ab Cancelled 02/12/21 02/12/21 Range/Units 01:30 01:30 WBC (4.8-10.8) K/uL RBC (4.2-5.4) M/uL Hgb (12.0-16.0) g/dL Hct (37-47) % MCV (80-100) fL MCH (25-34) pg MCHC (32-36) g/dL RDW Std Deviation (36.4-46.3) fL RDW Coeff of Mitzi (11.5-14.5) % Plt Count (130-400) K/uL MPV (7.4-10.4) fL Immature Gran % (Auto) % Neut % (Auto) % Lymph % (Auto) % [place] % (Auto) % Eos % (Auto) % Baso % (Auto) % Neut # (Auto) (1.4-6.5) K/uL Lymph # (Auto) (1.2-3.4) K/uL [place] # (Auto) (0.11-0.59) K/uL Eos # (Auto) (0-0.5) K/uL Baso # (Auto) (0-0.2) K/uL Immature Gran # (Auto) (0.00-0.02) K/uL RBC Morphology Sodium (136-145) mmol/L Potassium 4.4 (3.5-5.1) mmol/L Chloride (98-107) mmol/L Carbon Dioxide (21-32) mmol/L Anion Gap (3-11) BUN (7-18) mg/dl Creatinine (0.6-1.2) mg/dl Est Cr Clr Drug Dosing ml/min Est GFR ( Amer) ml/min Est GFR (Non-Af Amer) ml/min BUN/Creatinine Ratio (10-20) Glucose (70-99) mg/dl Calcium (8.5-10.1) mg/dl Magnesium 2.1 (1.8-2.4) mg/dl Total Bilirubin (0.2-1) mg/dl AST 35 (15-37) U/L ALT (12-78) U/L Alkaline Phosphatase (45-117) U/L Troponin I (0-0.045) ng/ml NT-Pro-B Natriuret Pep (0-1800) pg/ml Total Protein (6.4-8.2) gm/dl Albumin (3.4-5.0) gm/dl Globulin (2.5-4.0) gm/dl Albumin/Globulin Ratio (0.9-2) Lipase (73-393) U/L Lyme Disease IgG Ab Negative Lyme Disease IgM Ab Negative Imaging Data My Impression: X-ray: I interpreted the following studies. Chest: A single view study of the chest was reviewed and was negative for cardiomegaly, focal infiltrate, effusion, pulmonary edema, or wide mediastinum. ECG Data Attestation: I personally reviewed and interpreted this ECG as follows: Indication: + chest pain Rate (beats per minute): 77 Rhythm: + normal sinus ECG Intervals/blocks: + Normal QRS and + Normal QT ECG [place]: + Normal ECG ST segments: + T-wave inversions (aVL, Vs) Comparison ECG Date: from (05/20/2016) MDM Narrative Patient presents with chest pain/burning that seems refractory to OTC meds for heartburn and pt states she avoid acidic food and takes her stomach meds daily. She has significant cardiac hx. No ekg changes, however labs reveal elevated troponin. Pt takes ASA daily. Another not given in the ER as patient concerned for additional stomach irritation. Pepcid and maalox tried in addition. Nitro paste and eventually morphine added. CXR reassuring. Other lab abnormalities appear consistent with prior levels given hx. Case discussed with hospitalist. Discussed with pt possible ACS vs related to elevated BP today which she noted is worse compared to usual levels. I do not suspect occult infectious etiology, dissection, increasing aneurysm, acute valve abnormality, tamponade, trauma. An order was placed for continuous cardiac monitoring. The monitor shows a rate of _72_ with _normal sinus__ rhythm. Impression & Plan Chest pain, Hypertension, Elevated troponin Discharge Plan Visit Data Chief Complaint: Chest Pain Stated Complaint: CHEST PAIN,HIGH BLOOD PRESSURE ED Provider: Vanessa Galloway Discharge Problem: Chest pain, Hypertension, Elevated troponin Patient Disposition: Admitted As Inpatient Condition: Good Discharge Instructions Interventions: ED Discharge Assessment Last Done: 02/12/21 06:14
[2021-02-12 01:13] LABS: Albumin Globulin Ratio 0.5 (0.9-2); Albumin Level 3.4 gm/dl (3.4-5.0); BUN Creatinine Ratio 20.1 (10-20); Bilirubin,Total 0.4 mg/dl (0.2-1); Calcium 8.9 mg/dl (8.5-10.1); Est GFR (African American) 97.5 ml/min; Est GFR (Non-African American) 84.2 ml/min; Globulin 6.7 gm/dl (2.5-4.0); Total Protein 10.1 gm/dl (6.4-8.2); Troponin I 0.096 ng/ml (0-0.045)
[2021-02-12 01:51] LABS: Potassium 4.4 mmol/L (3.5-5.1)
[2021-02-12 01:56] LABS: Magnesium 2.1 mg/dl (1.8-2.4)
[2021-02-12 01:57] LABS: Basophils # (auto) 0.01 K/uL (0-0.2); Basophils % (auto) 0.4 %; Eosinophils # (auto) 0.01 K/uL (0-0.5); Eosinophils % (auto) 0.4 %; Immature Granulocytes # (auto) 0.01 K/uL (0.00-0.02); Immature Granulocytes % (auto) 0.4 %; Lymphocytes # (auto) 0.95 K/uL (1.2-3.4); Lymphocytes % (auto) 41.9 %; Monocytes % (auto) 13.2 %; Neutrophils # (auto) 0.99 K/uL (1.4-6.5); Neutrophils % (auto) 43.7 %
[2021-02-12 01:58] LABS: RBC Morphology Unremarkable
[2021-02-12] MEDS ORDERED: MoRPHine SULFATE 2 MG/ML CARP IV STA ×2 (02:09→05:16)
[2021-02-12] MEDS ORDERED: ONDANSETRON INJ 2 MG/ML 2 ML VIAL IV STA (02:09)
[2021-02-12] MEDS ORDERED: ALUMINUM/MAGNESIUM SUSP 30 ML UDC PO STA (02:09)
[2021-02-12 02:29] LABS: Lyme Ab IgG w/WB Rflx Negative (Negative); Lyme Ab IgM w/WB Rflx Negative (Negative)
--- NOTE | 2021-02-12 02:34 | History & Physical Report ---
Date of Service February 12, 2021 Assessment & Plan (1) Chest pain: Plan: 76 yo F with hx AZ, HLD, HTN, CABGx2, Aortic and Mitral Regurg admitted for chest pain workup. Chest Pain - trop 0.096, trending - EKG with nonspecific ST segment changes from 2016 - improvement with nitro, high risk for AZ - cont ASA, Metoprolol, statin - nitro PRN, cardiology consult in AM - tte in AM - daily EKG Blood dyscrasias - ANC 0.99, ALC 0.95, WBC 2.27, Hg 10.9 - total protein 10.1 - possibly secondary to CIDP (Chronic inflammatory demyelinating polyneuropathy)? - may be worth looking into SPEP/UPEP given elevated protein or other bone marrow suppressive conditions - no indications for acute infection - neutropenic precautions Chronic Hyponatremia - Na 124 on admission, appears to be stable at this level over past few admissions - no aggressive treatment - asymptomatic [no central nervous sx, n/v] Chronic Conditions Hypothyroidism: cont levothyroxine HTN: cont metoprolol, lasix DVT ppx: lovenox FEN/GI: NPO, Heart Healthy low sodium after ECHO Bowel regimen: miralax Code Status: full code Dispo: med/tele (2) CIDP (chronic inflammatory demyelinating polyneuropathy): (3) Hx of CABG: (4) Dyslipidemia: (5) Aortic regurgitation: (6) Hypothyroidism: (7) Mitral regurgitation: (8) Chronic hyponatremia: (9) Neutropenia: (10) Anemia: History of Present Illness Primary Care Provider: Supa Aggarwal MD 76 yo F hx CABG 5 years ago, HTN, autoimmune disease, mitral and aortic regurg, HLD in the ER this am for complaints of chest pain during the day yesterday. States that around noon on friday she started having symptoms of reflux that weren't going away. Was able to go about and do regular household tasks and go on half hour walk in the afternoon without restriction. Near bedtime at 10 pm she noted that the pain was still there and not going away. States that it felt like reflux and a sharp pain that she thought was her stomach, but felt similar to the pain prior to her CABG. She had been taking her blood pressure throughout the afternoon and noted it was going as high as 190 and decided to come to the ER at that time. Follows with Dr. Martinez. Some improvement in pain after receiving nitro in the ER. - N/V/D. - lightheadedness/dizziness/trouble walking. No new numbness/tingling. no edema. no trouble breathing/pleuritic chest pain. Allergies Allergy/AdvReac Type Severity Reaction Status Date / Time sulfamethoxazole Allergy Intermediate severe Verified 02/12/21 02:33 stiff neck, nausea erythromycin base Allergy Unknown UNKNOWN - Verified 02/12/21 02:33 A CHILD trimethoprim AdvReac Intermediate SEVERE Verified 02/12/21 02:33 STIFF NECK, NAUSEA, "HEARD BONES CRUNCH X2" amoxicillin AdvReac Mild Gastrointestinal Verified 02/12/21 02:33 Upset doxycycline AdvReac Mild nausea / Verified 02/12/21 02:33 vomiting / syncope Home Medications Medication Instructions Recorded Confirmed Type minoxidil 2 % topical solution 1 ml TOPICAL DAILY 02/24/18 02/12/21 History (Rogaine) polyethylene glycol 3350 17 gram 17 g PO HS 02/24/18 02/12/21 History oral powder packet (Miralax) aluminum-magnesium hydroxide 200 5 ml PO Q6H PRN 07/30/18 02/12/21 History mg-200 mg/5 mL oral suspension cyclosporine 0.05 % eye drops in a 1 drp OPHTHALMIC (EYE) BID 02/21/19 02/12/21 History dropperette (Restasis) esomeprazole magnesium 40 mg 40 mg PO QAM #90 cap 02/21/19 02/12/21 History capsule,delayed release cholecalciferol (vitamin D3) 25 25 mcg PO QPM 07/27/19 02/12/21 History mcg (1,000 unit) capsule conjugated estrogens 0.625 mg/gram 0.3125 mg PV .COMPLEX #30 gm 11/23/19 02/12/21 Rx vaginal cream (Premarin) wheat dextrin 3 gram/3.5 gram oral 1 packet PO DAILY 01/25/20 02/12/21 History powder packet (Benefiber Clear Sugar Free(dextrin)) levothyroxine 88 mcg tablet 88 mcg PO 3XWK #90 tab 05/16/20 02/12/21 Rx (Synthroid) levothyroxine 112 mcg tablet 112 mcg PO 4XWK 90 Days #90 tab 06/06/20 02/12/21 Rx (Synthroid) immune glob G 40 gram/400 See Rx Instructions IV .COMPLEX 06/07/20 02/12/21 Rx mL(10%)-gly-IgA ave 46 mcg/mL #400 ml injection soln (Gamunex-C) furosemide 20 mg tablet (Lasix) 20 mg PO DAILY PRN #20 tab 06/14/20 02/12/21 Rx potassium chloride 10 mEq 10 meq PO DAILY PRN #20 tab 06/14/20 02/12/21 Rx tablet,extended release aspirin 81 mg tablet,delayed 81 mg PO DAILY 10/03/20 02/12/21 History release metoprolol tartrate 25 mg tablet 12.5 mg PO BID #180 tab 11/21/20 02/12/21 Rx hydrocodone 5 mg-acetaminophen 325 1 tab PO .COMPLEX #131 tab 02/08/21 02/12/21 Rx mg tablet atorvastatin 20 mg tablet (Lipitor) 40 mg PO HS 02/12/21 02/12/21 History biotin 5,000 mcg sublingual tablet 5,000 mcg SUBLINGUAL DAILY 02/12/21 02/12/21 History isosorbide dinitrate 5 mg tablet 5 mg PO DAILY #14 tab 02/14/21 Rx isosorbide mononitrate 20 mg tablet 20 mg PO BID #30 tab 02/14/21 Rx losartan 25 mg tablet 25 mg PO QAM #30 tab 02/14/21 Rx zolpidem 5 mg tablet (Ambien) 2.5 - 5 mg PO HS PRN #15 tab 02/15/21 Rx Past Med/Surg History Medical History Aortic regurgitation Atrial fibrillation SECONDARY TO CABG-MD DOES NOT BELIEVE PT WILL HAVE FURTHER ISSUES WITH AFIB Chest pain Coronary artery disease Cutaneous lupus erythematosus Dyslipidemia Heart disease Heart murmur Hx of fracture Hyperlipidemia Hypertension Hypothyroidism Mitral regurgitation Myocardial infarct Myocardial Infarction 2014 Nausea and vomiting after administration of anesthetic agent Peripheral neuropathy Sjoegren syndrome Tick bite Surgical History History of bilateral cataract extraction History of biopsy nerve biopsy in leg History of cardiac cath 2014 History of carpal tunnel release of both wrists History of colonoscopy History of esophagogastroduodenoscopy (EGD) History of lumbar discectomy History of tonsillectomy History of wisdom tooth extraction S/P CABG x 2 05/2015 [place] [facility] [place] Dr. Martinez Status post cervical spinal fusion C5-C6; difficulty moving neck backwards Family History Family/Other Family history of diabetes mellitus cousin Grandmother (Maternal) Family history of diabetes mellitus Stroke Mother Family hx of colon cancer Colorectal cancer Aunt Breast cancer Father Prostate cancer Brother Prostate cancer Other No family history of adverse response to anesthesia Denies family history of Ovarian cancer Myocardial infarction Lung cancer Social History Smoking Status: Never smoker Second Hand Exposure: No; Hx Alcohol Use: No Hx Substance Use: No Preferred Language: Kiswahili Communication Ability: Effective Visual Impairment: No Limitations Hearing Ability: Normal Oxide Furnace Tender Required: No Beliefs That Will Affect Care: None Current Living Situation: Spouse Feels Safe at Home: Yes Childhood Exposure to Second-Hand Smoke: Yes (father) Seatbelt Use: always Assistive Devices: None Review of Systems Review of Systems: All systems reviewed & are unremarkable except as noted in Subjective Physical Exam Physical Exam: Constitutional: in no apparent distress, sitting comfortably in bed. Eyes: EOMI, pupils equal and reactive bilaterally, no scleral icterus Cardiac: RRR, no murmurs, gallops or rubs. Normal S1, S2 Pulm: CTA BL, no wheezes, rhonchi, crackles or rubs, moving air well throughout both lungs Abd: soft, nontender, nondistended, normal bowel sounds, no rebound or guarding Extremities: 2+ peripheral pulses, no edema Neuro: no focal deficits, moving all 4 limbs, A&Ox3 Results & Data Results & Data ([facility]) Vital Signs (Past 12 Hours) Vital Signs Temp Pulse Resp BP Pulse Ox 02/12/21 00:04 36.8 C 70 20 177/86 H 100 Laboratory Results Laboratory Results WBC 2.27 K/uL (4.8-10.8) L 02/12/21 00:30 RBC 3.43 M/uL (4.2-5.4) L 02/12/21 00:30 Hgb 10.9 g/dL (12.0-16.0) L 02/12/21 00:30 Hct 32.0 % (37-47) L 02/12/21 00:30 MCV 93.3 fL (80-100) 02/12/21 00:30 MCH 31.8 pg (25-34) 02/12/21 00:30 MCHC 34.1 g/dL (32-36) 02/12/21 00:30 RDW Std Deviation 47.8 fL (36.4-46.3) H 02/12/21 00: RDW Coeff of Mitzi 13.9 % (11.5-14.5) 02/12/21 00:30 Plt Count 199 K/uL (130-400) 02/12/21 00:30 MPV 10.0 fL (7.4-10.4) 02/12/21 00:30 Immature Gran % (Auto) 0.4 % 02/12/21 00:30 Neut % (Auto) 43.7 % 02/12/21 00:30 Lymph % (Auto) 41.9 % 02/12/21 00:30 Morris % (Auto) 13.2 % 02/12/21 00:30 Eos % (Auto) 0.4 % 02/12/21 00:30 Baso % (Auto) 0.4 % 02/12/21 00:30 Neut # (Auto) 0.99 K/uL (1.4-6.5) L* 02/12/21 00:30 Lymph # (Auto) 0.95 K/uL (1.2-3.4) L 02/12/21 00:30 Morris # (Auto) 0.30 K/uL (0.11-0.59) 02/12/21 00:30 Eos # (Auto) 0.01 K/uL (0-0.5) 02/12/21 00:30 Baso # (Auto) 0.01 K/uL (0-0.2) 02/12/21 00:30 Immature Gran # (Auto) 0.01 K/uL (0.00-0.02) 02/12/21 00:30 RBC Morphology Unremarkable 02/12/21 00:30 Sodium 124 mmol/L (136-145) L 02/12/21 00:30 Potassium 4.4 mmol/L (3.5-5.1) 02/12/21 01:30 Chloride 93 mmol/L (98-107) L 02/12/21 00:30 Carbon Dioxide 26 mmol/L (21-32) 02/12/21 00:30 Anion Gap 5.0 (3-11) 02/12/21 00:30 BUN 14 mg/dl (7-18) 02/12/21 00:30 Creatinine 0.70 mg/dl (0.6-1.2) 02/12/21 00:30 Est Cr Clr Drug Dosing 67.0 ml/min 02/12/21 00:30 Est GFR ( Amer) 97.5 ml/min 02/12/21 00:30 Est GFR (Non-Af Amer) 84.2 ml/min 02/12/21 00:30 BUN/Creatinine Ratio 20.1 (10-20) H 02/12/21 00:30 Glucose 92 mg/dl (70-99) 02/12/21 00:30 Calcium 8.9 mg/dl (8.5-10.1) 02/12/21 00:30 Magnesium 2.1 mg/dl (1.8-2.4) 02/12/21 01:30 Total Bilirubin 0.4 mg/dl (0.2-1) 02/12/21 00:30 AST 35 U/L (15-37) 02/12/21 01:30 ALT 27 U/L (12-78) 02/12/21 00:30 Alkaline Phosphatase 115 U/L (45-117) 02/12/21 00:30 Troponin I 0.096 ng/ml (0-0.045) H* 02/12/21 00:30 NT-Pro-B Natriuret Pep 950 pg/ml (0-1800) 02/12/21 00:30 Total Protein 10.1 gm/dl (6.4-8.2) H 02/12/21 00:30 Albumin 3.4 gm/dl (3.4-5.0) 02/12/21 00:30 Globulin 6.7 gm/dl (2.5-4.0) H 02/12/21 00:30 Albumin/Globulin Ratio 0.5 (0.9-2) L 02/12/21 00:30 Lipase 205 U/L (73-393) 02/12/21 00:30 Lyme Disease IgG Ab Negative (Negative) 02/12/21 01:30 Lyme Disease IgM Ab Negative (Negative) 02/12/21 01:30 COVID-19 Eval Order Covid19 at [facility] 02/12/21 02:35 Supervising Physician Co-Signing Physician Notes Attending addendum: I have physically seen this patient, have supervised the medical residents activities, and agree with the H&P unless as otherwise noted. Assessment and Plan: Chest pain/hypertension/CABG x2/AR/MR- The patient will be admitted to telemetry for serial cardiac enzymes, serial EKG's, cardiac rhythm monitoring and a 2-D echocardiogram with Dopplers. Continue aspirin, metoprolol with hold parameters Nitroglycerin sublingual as needed Consult cardiology Remaining orders and notations as noted Resident Activity Tracking Resident Involvement: Resident Care Provided Care Provided: Adult Hospital Medicine
[2021-02-12] MEDS ORDERED: ASPIRIN CHEW 324 MG PO STA (03:34)
[2021-02-12] MEDS ORDERED: NITROGLYCERIN SL 0.4 MG/TAB TAB SL PRN (06:40)
[2021-02-12] MEDS ORDERED: ONDANSETRON INJ 2 MG/ML 2 ML VIAL IV PRN (06:40)
[2021-02-12] MEDS ORDERED: FUROSEMIDE 20 MG TAB PO PRN (06:40)
[2021-02-12] MEDS ORDERED: POTASSIUM CHLORIDE 10 MEQ TABCR PO PRN (06:40)
[2021-02-12] MEDS ORDERED: ACETAMINOPHEN 325 MG TAB PO PRN (06:40)
[2021-02-12] MEDS ORDERED: SUCRALFATE 1 GM/10 ML UDC PO PRN (06:40)
--- NOTE | 2021-02-12 06:51 | XRay Report ---
XR chest 1V portable HISTORY: 76 years-old Female chest pain acute atypical chest pain COMPARISON: Chest radiograph 05/20/2016 TECHNIQUE: Portable AP view of the chest FINDINGS: Cardiac silhouette is enlarged. Prior median sternotomy with findings suggestive of CABG. Calcified p laque of the thoracic aorta. No pneumothorax, pleural effusion or overt pulmonary edema. Mild chronic interstitial coarsening. IMPRESSION: Cardiomegaly without acute process. ACT 112: Negative or not required by law. The above report was generated using voice recognition software. It may contain grammatical, syntax o r spelling errors. Electronically signed by: Tex Hopson M.D. 02/12/2021 6:50 AM
--- NOTE | 2021-02-12 07:16 | Hospitalist Progress Note ---
Date of Service February 12, 2021 Assessment & Plan (1) Chest pain: Plan: 76yo female with a PMH of HTN, HLD, PA, CABG x2, aortic regurgitation, and mitral regurgitation admitted with chest pain. Chest pain Troponin 0.096 on admission, repeat 0.[address] segment changes from 2016 Improvement with nitro, high risk for PA Continue ASA, metoprolol, statin, continue nitro PRN Follow up TTE Daily EKG Cardiology consulted, taking patient to botany laboratory assistant today Blood dyscrasias ANC 0.99, ALC 0.95, WBC 2.27, Hg 10.9 Total protein 10.1 Possibly secondary to CIDP (chronic inflammatory demyelinating polyneuropathy)? Check SPEP/UPEP given elevated protein No indications for acute infection Neutropenic precautions Chronic hyponatremia Na 124 on admission, appears to be stable at this level over past few admissions Asymptomatic (no OFFICE RUNNER symptoms, no nausea/vomiting) No aggressive treatment HTN Continue metoprolol, lasix Hypothyroidism Continue levothyroxine DVT ppx: lovenox FEN/GI: NPO, heart healthy low sodium after echo Bowel regimen: miralax Code status: full code Dispo: med/tele (2) CIDP (chronic inflammatory demyelinating polyneuropathy): (3) Hx of CABG: (4) Dyslipidemia: (5) Aortic regurgitation: (6) Hypothyroidism: (7) Mitral regurgitation: (8) Chronic hyponatremia: (9) Neutropenia: (10) Anemia: Admission and Anticipated Discharge Date Admission Date: February 12, 2021 Supervising Physician Co-Signing Physician Notes Resident Physician Supervision Note: I independently interviewed and examined the patient and verified the astorga history and physical, reviewed labs and image studies and agree with resident Dr. Montoya findings and care plan. Subjective Patient seen and evaluated at bedside this morning. No acute events overnight. Patient reports continued chest pain, unchanged from when she came in. Denies SOB, abdominal pain, nausea, vomiting, sweating, or other symptoms. Review of Systems Review of Systems: See HPI Physical Exam Physical Exam: Constitutional: well-appearing, no acute distress HEENT: NCAT, no conjunctival injection CV: regular rhythm, no murmur appreciated, extremities well-perfused, no LE edema Resp: CTABL, no wheezes/rales/rhonchi appreciated, no increased work of breathing GI: soft, nondistended, nontender, BS normoactive MSK: no gross deformities appreciated, chest pain not reproducible with palpation Skin: warm, dry, no rash appreciated Neuro: AOx4, no focal neurological deficits appreciated Results & Data Results & Data ([facility]) Vital Signs (Past 12 Hours) Vital Signs Temp Pulse Pulse Resp BP BP Pulse Ox 02/12/21 06:40 36.4 C L 62 16 188/79 H 100 02/12/21 06:00 56 L 14 154/76 H 96 02/12/21 05:30 59 L 12 166/77 H 96 02/12/21 05:00 61 14 163/76 H 97 02/12/21 04:30 68 16 153/74 H 98 02/12/21 04:00 58 L 15 163/78 H 97 02/12/21 03:32 59 L 13 175/82 H 99 02/12/21 03:00 59 L 19 169/88 H 98 02/12/21 02:30 67 19 179/88 H 100 02/12/21 02:00 63 20 179/82 H 97 02/12/21 01:00 67 14 164/81 H 98 02/12/21 00:33 68 17 157/85 H 97 02/12/21 00:04 36.8 C 70 20 177/86 H 100 Resident Activity Tracking Resident Involvement: Resident Care Provided Care Provided: Adult Hospital Medicine
[2021-02-12] MEDS: FAMOTIDINE 20 MG in SYRINGE 3 ML IV SCH ×2 (08:45→20:36)
[2021-02-12] MEDS: PSYLLIUM 58.6% POWDER PACKET PO SCH (08:45)
[2021-02-12] MEDS: METOPROLOL TARTRATE 25 MG TAB PO SCH ×2 (08:45→20:36)
[2021-02-12] MEDS: LEVOTHYROXINE SODIUM 112 MCG TABLET PO SCH (08:46)
[2021-02-12] MEDS: MoRPHine SULFATE 2 MG/ML CARP IV PRN (10:02)
--- NOTE | 2021-02-12 12:02 | Cardiology Consultation ---
Date of Consultation February 12, 2021 Assessment & Plan (1) Chest pain: (2) Coronary artery disease: (3) Hypertension: (4) Dyslipidemia: 1. Chest pain: She has chest discomfort which is worrisome and similar to what she experienced in 2015 with her presentation. She has not had it in the interim, that coupled with her cardiac enzyme abnormalities strongly suggest that this is due to myocardial ischemia. 2. Coronary disease: She has known coronary disease with bypass surgery in 2015 . Although she has been on risk factor modification is certainly likely that she has had progression. We should perform catheterization to determine her coronary status as well as her vein grafts. She is agreeable and she has been n.p.o. 3. Hypertension: Her blood pressure has been elevated since presentation this admission, prior to that she had a somewhat labile blood pressure but often the blood pressure was normal or low. Part of this may be due to anxiety. She is on low-dose metoprolol tartrate as an outpatient. I am not going to treat this acutely as she is going to the [employer] soon. 4. Dyslipidemia: She is on atorvastatin 40 mg daily as an outpatient. History of Present Illness Reason for Consultation: Chest discomfort, positive troponin Attending Physician: Rosi White MD History of Present Illness This is a 76-year-old woman who has a history of coronary artery disease which was identified when she presented with chest discomfort in May 2015. She went on to have bypass surgery on June 07, 2015 at [facility] with a INFANTE to the LAD and saphenous vein graft to the obtuse marginal. She did have postop atrial fibrillation and she has a chronic inflammatory polyneurop athy for which she receives intravenous immunoglobulin. She has done well with regards to her coronary artery disease until recently. Of note she has had exertional back pain which she thought was musculoskeletal over the last 6 months, it is not clear whether that has worsened or not recently however the day before presentation she developed chest discomfort initially located under her left breast but then radiating throughout her precordium. This waxed and waned somewhat but was reminiscent of her presentation in 2015 therefore she came into the emergency room. She notes that the back discomfort that she was experiencing with exertion was also present with the chest discomfort. She has continued to have intermittent chest discomfort in the hospital, her initial troponin was 0.096 at 12:30 this morning, at just before 7:00 this morning it increased to 0.112. Her electrocardiogram did not show acute changes. Of note her white count is 2.27, however it is generally in that range and she does not seem to have problems with infection. Her platelet count is normal and her hemoglobin is slightly low at 10.9 this admission. At the time my evaluation she was not having chest discomfort to having just received morphine. She has no other symptoms such as palpitations, she did have a little bit of lightheadedness recently but was not having it with this discomfort. She does not have dyspnea on exertion or orthopnea. Allergies Allergy/AdvReac Type Severity Reaction Status Date / Time sulfamethoxazole Allergy Intermediate severe Verified 02/12/21 02:33 stiff neck, nausea erythromycin base Allergy Unknown UNKNOWN - Verified 02/12/21 02:33 A CHILD trimethoprim AdvReac Intermediate SEVERE Verified 02/12/21 02:33 STIFF NECK, NAUSEA, "HEARD BONES CRUNCH X2" amoxicillin AdvReac Mild Gastrointestinal Verified 02/12/21 02:33 Upset doxycycline AdvReac Mild nausea / Verified 02/12/21 02:33 vomiting / syncope Home Medications Medication Instructions Recorded Confirmed Type minoxidil 2 % topical solution 1 ml TOPICAL DAILY 02/24/18 02/12/21 History (Rogaine) polyethylene glycol 3350 17 gram 17 g PO HS 02/24/18 02/12/21 History oral powder packet (Miralax) aluminum-magnesium hydroxide 200 5 ml PO Q6H PRN 07/30/18 02/12/21 History mg-200 mg/5 mL oral suspension cyclosporine 0.05 % eye drops in a 1 drp OPHTHALMIC (EYE) BID 02/21/19 02/12/21 History dropperette (Restasis) esomeprazole magnesium 40 mg 40 mg PO QAM #90 cap 02/21/19 02/12/21 History capsule,delayed release cholecalciferol (vitamin D3) 25 25 mcg PO QPM 07/27/19 02/12/21 History mcg (1,000 unit) capsule conjugated estrogens 0.625 mg/gram 0.3125 mg PV .COMPLEX #30 gm 11/23/19 02/12/21 Rx vaginal cream (Premarin) wheat dextrin 3 gram/3.5 gram oral 1 packet PO DAILY 01/25/20 02/12/21 History powder packet (Benefiber Clear Sugar Free(dextrin)) levothyroxine 88 mcg tablet 88 mcg PO 3XWK #90 tab 05/16/20 02/12/21 Rx (Synthroid) levothyroxine 112 mcg tablet 112 mcg PO 4XWK 90 Days #90 tab 06/06/20 02/12/21 Rx (Synthroid) immune glob G 40 gram/400 See Rx Instructions IV .COMPLEX 06/07/20 02/12/21 Rx mL(10%)-gly-IgA ave 46 mcg/mL #400 ml injection soln (Gamunex-C) furosemide 20 mg tablet (Lasix) 20 mg PO DAILY PRN #20 tab 06/14/20 02/12/21 Rx potassium chloride 10 mEq 10 meq PO DAILY PRN #20 tab 06/14/20 02/12/21 Rx tablet,extended release aspirin 81 mg tablet,delayed 81 mg PO DAILY 10/03/20 02/12/21 History release metoprolol tartrate 25 mg tablet 12.5 mg PO BID #180 tab 11/21/20 02/12/21 Rx zolpidem 5 mg tablet (Ambien) 2.5 - 5 mg PO HS PRN #15 tab 01/25/21 02/12/21 Rx hydrocodone 5 mg-acetaminophen 325 1 tab PO .COMPLEX #131 tab 02/08/21 02/12/21 Rx mg tablet atorvastatin 20 mg tablet (Lipitor) 40 mg PO HS 02/12/21 02/12/21 History biotin 5,000 mcg sublingual tablet 5,000 mcg SUBLINGUAL DAILY 02/12/21 02/12/21 History Patient History Medical History Aortic regurgitation Atrial fibrillation SECONDARY TO CABG-MD DOES NOT BELIEVE PT WILL HAVE FURTHER ISSUES WITH AFIB Chest pain Coronary artery disease Cutaneous lupus erythematosus Dyslipidemia Heart disease Heart murmur Hx of fracture Hyperlipidemia Hypertension Hypothyroidism Mitral regurgitation Myocardial infarct Myocardial Infarction 2014 Nausea and vomiting after administration of anesthetic agent Peripheral neuropathy Sjoegren syndrome Tick bite Surgical History History of bilateral cataract extraction History of biopsy nerve biopsy in leg History of cardiac cath 2014 History of carpal tunnel release of both wrists History of colonoscopy History of esophagogastroduodenoscopy (EGD) History of lumbar discectomy History of tonsillectomy History of wisdom tooth extraction S/P CABG x 2 05/2015 @ [facility] [place]follows with Dr. Martinez Status post cervical spinal fusion C5-C6; difficulty moving neck backwards Family History Family/Other Family history of diabetes mellitus cousin Grandmother (Maternal) Family history of diabetes mellitus Stroke Mother Family hx of colon cancer Colorectal cancer Aunt Breast cancer Father Prostate cancer Brother Prostate cancer Other No family history of adverse response to anesthesia Denies family history of Ovarian cancer Myocardial infarction Lung cancer Social History Smoking Status: Never smoker Second Hand Exposure: No; Hx Alcohol Use: No Hx Substance Use: No Preferred Language: Thai Communication Ability: Effective Visual Impairment: No Limitations Hearing Ability: Normal Clinical Project Coordinator Required: No Beliefs That Will Affect Care: None Current Living Situation: Spouse Feels Safe at Home: Yes Childhood Exposure to Second-Hand Smoke: Yes (father) Seatbelt Use: always Assistive Devices: Glasses Review of Systems Review of Systems: All systems reviewed & are unremarkable except as noted in HPI & below Physical Exam Physical Exam: Constitutional: Alert, cooperative and in no distress. HEENT: Unremarkable Neck: No jugular venous distention, carotid pulses are normal and equal bilaterally without bruits. Pulmonary: Clear to auscultation bilaterally. Cardiac: Regular rhythm with no murmur, gallop or rub. Abdomen: Soft, nontender with normal bowel sounds. Extremities: No edema. Distal pulses intact. Neurologic: No focal findings. Gait is steady. Skin: No rash, ecchymoses or petechiae. Results & Data ([facility]) Vital Signs (Past 12 Hours) Vital Signs Temp Pulse Pulse Resp BP BP Pulse Ox 02/12/21 10:51 36.8 C 55 L 16 146/73 H 97 02/12/21 09:57 60 20 175/81 H 97 02/12/21 08:00 58 L 02/12/21 06:40 36.4 C L 62 16 188/79 H 100 02/12/21 06:00 56 L 14 154/76 H 96 02/12/21 05:30 59 L 12 166/77 H 96 02/12/21 05:00 61 14 163/76 H 97 02/12/21 04:30 68 16 153/74 H 98 02/12/21 04:00 58 L 15 163/78 H 97 02/12/21 03:32 59 L 13 175/82 H 99 02/12/21 03:00 59 L 19 169/88 H 98 02/12/21 02:30 67 19 179/88 H 100 02/12/21 02:00 63 20 179/82 H 97 02/12/21 01:00 67 14 164/81 H 98 02/12/21 00:33 68 17 157/85 H 97 02/12/21 00:04 36.8 C 70 20 177/86 H 100 Laboratory Results Cardiac Enzymes 02/12/21 02/12/21 02/12/21 Range/Units 00:30 01:30 06:47 AST 35 (15-37) U/L Troponin I 0.096 H* 0.112 H* (0-0.045) ng/ml CBC 02/12/21 Range/Units 00:30 WBC 2.27 L (4.8-10.8) K/uL RBC 3.43 L (4.2-5.4) M/uL Hgb 10.9 L (12.0-16.0) g/dL Hct 32.0 L (37-47) % Plt Count 199 (130-400) K/uL Neut # (Auto) 0.99 L* (1.4-6.5) K/uL Lymph # (Auto) 0.95 L (1.2-3.4) K/uL [place] # (Auto) 0.30 (0.11-0.59) K/uL Eos # (Auto) 0.01 (0-0.5) K/uL Baso # (Auto) 0.01 (0-0.2) K/uL Comprehensive Metabolic Panel 02/12/21 02/12/21 Range/Units 00:30 01:30 Sodium 124 L (136-145) mmol/L Potassium 4.4 (3.5-5.1) mmol/L Chloride 93 L (98-107) mmol/L Carbon Dioxide 26 (21-32) mmol/L BUN 14 (7-18) mg/dl Creatinine 0.70 (0.6-1.2) mg/dl Glucose 92 (70-99) mg/dl Calcium 8.9 (8.5-10.1) mg/dl AST 35 (15-37) U/L ALT 27 (12-78) U/L Alkaline Phosphatase 115 (45-117) U/L Total Protein 10.1 H (6.4-8.2) gm/dl Albumin 3.4 (3.4-5.0) gm/dl Intake and Output 02/11/21 02/12/21 02/12/21 22:59 06:59 14:59 Intake Total 100 / 100 Balance 100 / 100 Intake: IV 100 / 100 Acetaminophen 1,000 mg In 100 100 / 100 ml @ 400 mls/hr IV NOW STA Rx#: [id number] Other: Weight 68.1 kg Weight Measurement Method Standing Scale Diagnostic Findings Telemetry: Sinus rhythm in the 50s to 60s with an IVCD PG Care Time/CCT Total # of Minutes Spent Total Time Spent with Patient: Total time spent is greater than 50% in coordination of care (as documented) at patient's floor/unit and/or counseling patient: Coding Level of Care Code 77371 Initial Inpt Care Lvl 3 Diagnoses Chest pain I20.0 Chest pain type: chest pain due to myocardial ischemia Ischemic chest pain type: unstable angina pectoris Coronary artery disease I25.110 Coronary Disease-Associated Artery/Lesion type: sun'aq artery [place] vs. transplanted heart: sun'aq heart Associated angina: with unstable angina Hypertension I10 Hypertension type: primary hypertension Dyslipidemia E78.5 (1) Chest pain Chest pain type: chest pain due to myocardial ischemia Ischemic chest pain type: unstable angina pectoris Qualified Code(s): I20.0 - Unstable angina (2) Coronary artery disease Coronary Disease-Associated Artery/Lesion type: sun[place]aq artery [place] vs. transplanted heart: sun'aq heart Associated angina: with unstable angina Qualified Code(s): I25.110 - Atherosclerotic heart disease of sun'aq coronary artery with unstable angina pectoris (3) Hypertension Hypertension type: primary hypertension Qualified Code(s): I10 - Essential (primary) hypertension
[2021-02-12] MEDS ORDERED: NITROGLYCERIN/D5W 100MCG/ML 20ML SYR ONE (12:22)
[2021-02-12] MEDS ORDERED: fentaNYL citrate 100 MCG/2 ML VIAL ONE ×2 (12:22→13:27)
[2021-02-12] MEDS ORDERED: niCARdipine HCL INJ 2.5 MG/ML 10 ML AMP ONE (12:22)
[2021-02-12] MEDS ORDERED: HEPARIN (PORCINE) 1000 UNIT/ML 10 ML (CATH LAB USE ONLY) ONE (12:22)
[2021-02-12] MEDS ORDERED: MIDAZOLAM HCL 1 MG/ML 2ML VIAL ONE ×2 (12:22→12:59)
--- NOTE | 2021-02-12 12:34 | Pre Anesthesia Assessment ---
Date of Service February 12, 2021 Pre Sedation Assessment Vital Signs Temp Pulse Pulse Resp BP BP Pulse Ox 02/12/21 12:05 63 20 177/79 H 99 02/12/21 10:51 98.2 F 55 L 16 146/73 H 97 02/12/21 09:57 60 20 175/81 H 97 02/12/21 08:00 58 L 02/12/21 06:40 97.5 F L 62 16 188/79 H 100 02/12/21 06:00 56 L 14 154/76 H 96 02/12/21 05:30 59 L 12 166/77 H 96 02/12/21 05:00 61 14 163/76 H 97 02/12/21 04:30 68 16 153/74 H 98 02/12/21 04:00 58 L 15 163/78 H 97 02/12/21 03:32 59 L 13 175/82 H 99 02/12/21 03:00 59 L 19 169/88 H 98 02/12/21 02:30 67 19 179/88 H 100 02/12/21 02:00 63 20 179/82 H 97 02/12/21 01:00 67 14 164/81 H 98 02/12/21 00:33 68 17 157/85 H 97 02/12/21 00:04 98.2 F 70 20 177/86 H 100 Cardiovascular RRR, no murmur, no edema Respiratory normal respiratory effort, lungs clear to auscultation Pre-Sedation Airway Assessment Smoking Status: Never smoker Hx Sleep Apnea: No Hx Difficult Intubation: No Short, Thick Neck: No Thyromental Distance: > or= 3.5 Finger Breadths Oral Cavity: + WNL Mallampati Class: II ASA: ASA2 NPO Status Date of Last Intake of Fluids: 02/11/21 Time of Last Intake of Fluids: 21:00 Date of Last Intake of Solid Food: 02/11/21 Time of Last Intake of Solid Foods: 21:00 Procedure Planning Contraindications for Sedation: none Current Medications Reviewed: Yes Notes The planned sedation has been discussed with the patient. Informed Consent was obtained. I have identified the patient, determined the appropriateness of sedation and have assessed the patient immediately prior to the procedure. All medicine(s) and interventions are by my order.
--- NOTE | 2021-02-12 13:19 | Post Anesthesia Assessment ---
Date of Service February 12, 2021 Post Sedation Assessment Vital Signs Temp Pulse Pulse Resp BP BP Pulse Ox 02/12/21 12:05 63 20 177/79 H 99 02/12/21 10:51 98.2 F 55 L 16 146/73 H 97 02/12/21 09:57 60 20 175/81 H 97 02/12/21 08:00 58 L 02/12/21 06:40 97.5 F L 62 16 188/79 H 100 02/12/21 06:00 56 L 14 154/76 H 96 02/12/21 05:30 59 L 12 166/77 H 96 02/12/21 05:00 61 14 163/76 H 97 02/12/21 04:30 68 16 153/74 H 98 02/12/21 04:00 58 L 15 163/78 H 97 02/12/21 03:32 59 L 13 175/82 H 99 02/12/21 03:00 59 L 19 169/88 H 98 02/12/21 02:30 67 19 179/88 H 100 02/12/21 02:00 63 20 179/82 H 97 02/12/21 01:00 67 14 164/81 H 98 02/12/21 00:33 68 17 157/85 H 97 02/12/21 00:04 98.2 F 70 20 177/86 H 100 Recovery Score Activity: Moves 4 extremities Respiration: Deep Breath/Cough Circulation: +/-20% PreAnes Value Consciousness: Fully Awake Oxygen Saturation: O2 needed for >90% Discharge Sedation Level of Care: Fast Track Phase II Post Sedation Plan On clinical assessment, the patient appears to have tolerated the sedation without complications. Patient is recovering as anticipated. Patient will continue to be monitored by nursing and may be discharged when sedation discharge criteria are met per below protocol. Upon Completions of procedure up to 15 minutes continue every 5 minute vital signs and the P.A.R. score; then discharge to a Phase I or Fast Track to Phase II per the following guidelines: * Discharge Patient to appropriate Phase II area if PAR is 8 or greater or return to pre- procedure baseline. The post - procedure orders will be as directed. * If PAR score is less than 8 or not return to pre-procedure baseline then patient will follow Phase I monitoring till PAR is reached for Phase II. The Phase I may be done in procedure room or may call to secure a Phase I area. * If naloxone or flumazenil are used for reversal, hold in Phase I for continued monitoring from when last reversal dose was given for a minimum of 60 minutes or longer pending the nurse and/or physician discretion of patient condition before discharge to Phase II. Please call the Sedation Physician to re-evaluate and complete post-note for discharge to Phase II area. Do NOT discharge from procedure sedation or Phase 1 until post- sedation evaluation note is complete by procedure /sedation MD Sedation Discharge Instructions to be given to the patient at discharge to home.
[2021-02-12] MEDS ORDERED: hydrALAZINE HCL 20 MG/ML VIAL ONE (13:26)
--- NOTE | 2021-02-12 13:31 | Cardiac Catheterization ---
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 Cardiac Status Clinical evaluation leading to the procedure CAD Presenation: Non STEMI Anginal Classification: CCS IV Heart Failure: No Cardiogenic Shock within 24 Hours: No Cardiac Arrest within 24 Hours: No Imaging Studies Past 6 Months: Yes Stress Studies Past 6 Months: No Diagnostic Physicians Name: Pete Rea MD Status: Elective Closure Device Percutaneous Entry Location: Radial Closure Device: Radial Band Recommendations: Medical Therapy and/or Counseling Intraprocedure Events Significant Disection: No Perforation: No Cardiac Cath Procedure Full Procedure Date February 12, 2021 Pre-Procedure Diagnosis Pre-Procedure Diagnosis: Non STEMI and CAD AUC Score AUC Score: 7 Post-Procedure Diagnosis Post-Procedure Diagnosis: Severe CAD and Elevated Intracardiac Pressures Procedure(s) Performed Procedure(s) Performed: Coronary Angiography, Left Heart Cath, Ultrasound Guided Vascular Access and Bypass Graft Angiography Pillow Filler Pete Rea MD 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 Access: 6 Fr left radial artery. 4 Fr right common femoral vein under ultrasound guidance Catheters: JL4, JR4, BRENT, pigtail Findings: LM -normal caliber, 30% mid segment disease LAD -medium caliber, calcified diffuse intermittently ectatic disease extending from proximal to mid segment. Small D1 subtotally occluded. Small D2 occluded at the ostium. Small D3 with 95% ostial stenosis. 100% chronic occlusion after D3. Circumflex -70% ostial, 40% mid, competitive flow in distal segment/OM 3. RCA -dominant, large caliber, 30% mid segment disease. INFANTE to LADwidely patent. No significant LAD disease after anastomosis SVG to OM 3widely patent. No significant OM 3 disease after anastomosis. Retrofills into distal circumflex. LVEDP -18 Arterial Closure: TR band Summary: 1. Severe chronic multivessel coronary artery disease 30% left main -Diffuse proximal to mid LAD disease before 100% mid chronic LAD occlusion 70% ostial circumflex Subtotally occluded small D1, 95% ostial small D3 2. Widely patent INFANTE to LAD, SVG to OM 3 3. Elevated intracardiac filling pressure Recommendations: No high risk CAD identified. Suspect troponin likely secondary to supply/demand mismatch in the setting of chronic branch vessel disease. Recommend medical management with continued blood pressure control, ASCVD risk factor modification and continued evaluation for noncardiac causes of current chest pain. Hemodynamics Rest Ao:: 185/75/121 Final Ao: 170/66/104 LV: 169/18 Recommendations Recommendations: Medical Therapy and/or Counseling Specimens Specimens: None Radiation Exposure (mGy) 416 Contrast (mls) 40 Fluids (cc crystalloids) Fluids (cc crystalloids): 95 Drains Drains: none Anesthesia moderate Procedural Complication(s) None Disposition PCU I attest to the content of the Intraoperative Record and any orders documented therein. Any exceptions are noted below. [facility] Card Cath Procedure Codes Cardiac Catheterization Procedure 1: Cardiovascular Cath Procedures: 56979 Coronaries & LHC (+/-LV) & Grafts/IM (arterial & venous) Moderate Sedation Procedure 1: Sedation/Anesthesia: 20161 Mod Sedation by the same physician;Init15 Min Child Age 5 & Up Procedure 2: Sedation/Anesthesia: 99793 Mod Sedation by the same physician; Ea [id number] Minutes PG Care Time/CCT Total # of Minutes Spent Total Time Spent with Patient: Total time spent is greater than 50% in coordination of care (as documented) at patient's floor/unit and/or counseling patient:
[2021-02-12] MEDS ORDERED: hydrALAZINE HCL 20 MG/ML VIAL IM PRN (13:34)
[2021-02-12] MEDS ORDERED: SODIUM CHLORIDE 0.9% 250 ML IV SCH (14:00)
[2021-02-12] MEDS: LOSARTAN POTASSIUM 25 MG TAB PO SCH (14:33)
--- NOTE | 2021-02-12 14:38 | XCELERA ---
[id number]
--- NOTE | 2021-02-12 15:57 | Electrocardiogram Report ---
Test Reason : Blood Pressure : / mmHG Vent. Rate : 063 BPM Atrial Rate : 063 BPM P-R Int : 188 ms QRS Dur : 136 ms QT Int : 440 ms P-R-T Axes : 079 -11 078 degrees QTc Int : 450 ms Normal sinus rhythm Possible Left atrial enlargement Right bundle branch block Lateral infarct , age undetermined Abnormal ECG When compared with ECG of 12-FEB-2021 00:15, (unconfirmed) No significant change was found Confirmed by Malik Gaona ([id number]) on 02/12/2021 3:57:06 PM Referred By: REFERRED SELF Confirmed By:Malik Gaona
[2021-02-12] MEDS ORDERED: ALUMINUM/MAGNESIUM/SIMETH (MAALOX MAX) 30 ML UDC PO STA (17:04)
[2021-02-12] MEDS: ALUMINUM/MAGNESIUM SUSP 30 ML UDC PO PRN (17:25)
[2021-02-12] MEDS ORDERED: OPTIRAY 320 125ml IV ONE (17:52)
--- NOTE | 2021-02-12 18:14 | CT Scan Report ---
CHEST CTA for PULMONARY ARTERIES CT DOSE: 311.05 mGy.cm HISTORY: Shortness of breath. TECHNIQUE: Multiaxial CT images of the chest were performed following the intravenous administration of contrast to evaluate the pulmonary arteries. Maximal intensity projection images were also obtaine d. A dose lowering technique was utilized adhering to the principles of ALARA. COMPARISON STUDY: Chest 10/16/2012. FINDINGS: Normal caliber thoracic aorta with no evidence for dissection. The heart is mildly enlarged . Respiratory motion artifact obscures some of the left lower lobe and lingular segmental/subsegmenta l pulmonary arteries. However, the remaining pulmonary arteries show no filling defects to suggest a pulmonary embolus. Limited views of the upper abdomen demonstrate a normal liver, spleen, adrenal gla nds. No mediastinal or hilar lymphadenopathy. Normal esophagus. S-shaped scoliosis of the thoracolumb ar spine. No suspicious lytic or blastic osseous lesions. No pneumothorax. The central airways are pa tent. Mosaic attenuation within the lungs consistent with mild air trapping. Bibasilar linear densiti es consistent with subsegmental atelectasis. Otherwise, no focal lung consolidations to suggest pneum onia. No evidence for pulmonary edema. Poststernotomy changes. IMPRESSION: 1. No evidence for pulmonary embolus. 2. Mild cardiomegaly. 3. Mosaic attenuation within the lungs. This likely represents air trapping in the setting of small a irways disease. ACT 112: Negative or not required by law. Electronically signed by: Cedric Wilkes M.D. 02/12/2021 6:13 PM
[2021-02-12] MEDS: POLYETHYLENE (MIRALAX) 17 GM PACK PO SCH (20:37)
[2021-02-12] MEDS: ATORVASTATIN 40 MG TAB PO SCH (20:37)
[2021-02-12] MEDS: HYDROCODONE/ACETAMOPHEN 5/325MG TAB PO PRN (20:53)
[2021-02-12] MEDS: ZOLPIDEM TARTRATE 5 MG TAB PO PRN (22:13)
[2021-02-13] MEDS: HYDROCODONE/ACETAMOPHEN 5/325MG TAB PO PRN ×3 (04:33→18:51)
[2021-02-13] MEDS ORDERED: SODIUM CHLORIDE 0.65% NA SOLN 45 ML (OCEAN) ONE (04:48)
[2021-02-13] MEDS ORDERED: OXYMETAZOLINE 0.05% 30 ML BTL ONE (05:04)
[2021-02-13] MEDS: LEVOTHYROXINE SODIUM 112 MCG TABLET PO SCH (05:24)
[2021-02-13] MEDS: ALUMINUM/MAGNESIUM SUSP 30 ML UDC PO PRN ×2 (05:59→19:31)
--- NOTE | 2021-02-13 06:33 | Hospitalist Progress Note ---
Date of Service February 13, 2021 Assessment & Plan (1) Chest pain: Plan: 76yo female with a PMH of HTN, HLD, RI, CABG x2, aortic regurgitation, and mitral regurgitation admitted with chest pain. Chest pain EKG with nonspecific ST segment changes from 2016 TTE (02/12): EF 45-50%, mild wall hypokinesis, borderline pulmonary HTN; no significant change compared to prior echo (02/2020) Cardiac catheterization performed 02/12; findings: 1. Severe chronic multivessel coronary artery disease 30% left main Diffuse proximal to mid LAD disease before 100% mid chronic LAD occlusion 70% ostial circumflex Subtotally occluded small D1, 95% ostial small D3 2. Widely patent INFANTE to LAD, SVG to OM 3 3. Elevated intracardiac filling pressure Appreciate ongoing cardiology recommendations Troponin continues to be elevated - peaked on 02/13 in AM Cardiology would like to see a more substantial fall in troponin before being comfortable with discharge home Continue ASA, metoprolol, statin, continue nitro PRN Daily EKG Blood dyscrasias ANC 0.99, ALC 0.95, WBC 2.27, Hg 10.9 Total protein 10.1 Possibly secondary to CIDP (chronic inflammatory demyelinating polyneuropathy)? SPEP/UPEP pending No indications for acute infection Neutropenic precautions GERD Continue pantoprazole, sucralfate, maalox prn Chronic hyponatremia Na 124 on admission, appears to be stable at this level over past few admissions Asymptomatic (no [employer] symptoms, no nausea/vomiting) No aggressive treatment indicated HTN Continue metoprolol, lasix Hypothyroidism Continue levothyroxine DVT ppx: lovenox FEN/GI: heart healthy, low sodium Code status: full code Dispo: med/tele Admission and Anticipated Discharge Date Admission Date: February 12, 2021 Subjective Patient seen and evaluated at bedside this morning. No acute events overnight. Today patient feels "okay" and is eager to go home. Endorses continued chest pain, about 7/10 today. Patient believes her CP is due to GERD. Denies nausea, vomiting, SOB, arm pain, jaw pain, vision changes, or other symptoms. Review of Systems Review of Systems: See HPI Physical Exam Physical Exam: Constitutional: well-appearing, no acute distress HEENT: NCAT, no conjunctival injection CV: regular rhythm, no murmur appreciated, extremities well-perfused, no LE edema Resp: CTABL, no wheezes/rales/rhonchi appreciated, no increased work of breathing GI: soft, nondistended, nontender, BS normoactive MSK: no gross deformities appreciated, chest pain not reproducible with palpation Skin: warm, dry, no rash appreciated Neuro: AOx4, no focal neurological deficits appreciated Results & Data Results & Data ([facility]) Vital Signs (Past 12 Hours) Vital Signs Temp Pulse Pulse Resp BP BP Pulse Ox 02/13/21 03:00 37.2 C 61 16 125/55 L 90 02/13/21 00:20 37.3 C 69 20 123/68 98 02/12/21 23:02 57 L 02/12/21 19:36 37.0 C 70 20 145/71 H 99 Resident Activity Tracking Resident Involvement: Resident Care Provided Care Provided: Adult Hospital Medicine (1) Chest pain Chest pain type: unspecified Qualified Code(s): R07.9 - Chest pain, unspecified
[2021-02-13 06:41] LABS: Hematocrit (blood only) 32.8 % (37-47); Hemoglobin 11.3 g/dL (12.0-16.0); Lymphocytes # (auto) 0.54 K/uL (1.2-3.4); Lymphocytes % (auto) 15.7 %; Mean Corpuscular Hemoglobin 31.7 pg (25-34); Mean Corpuscular Hgb Conc 34.5 g/dL (32-36); Mean Corpuscular Volume 92.1 fL (80-100); Mean Platelet Volume 9.9 fL (7.4-10.4); Monocytes # (auto) 0.39 K/uL (0.11-0.59); Monocytes % (auto) 11.4 %; Neutrophils % (auto) 72.9 %; Platelet Count 176 K/uL (130-400); RDW Coefficient of Variation 14.2 % (11.5-14.5); RDW Standard Deviation 46.9 fL (36.4-46.3); Red Blood Count 3.56 M/uL (4.2-5.4); White Blood Count 3.43 K/uL (4.8-10.8)
[2021-02-13 07:12] LABS: BUN Creatinine Ratio 15.8 (10-20); Calcium 8.7 mg/dl (8.5-10.1); Creatinine Clr Calc Pharmacy 60.7 ml/min; Est GFR (African American) 95.9 ml/min; Est GFR (Non-African American) 82.7 ml/min; Potassium 4.2 mmol/L (3.5-5.1)
[2021-02-13] MEDS: ENOXAPARIN INJ 40 MG/0.4 ML SYR SQ SCH (09:02)
[2021-02-13] MEDS: ASPIRIN 81 MG ECTAB PO SCH ×2 (09:03→09:13)
[2021-02-13] MEDS: METOPROLOL TARTRATE 25 MG TAB PO SCH ×2 (09:03→21:23)
[2021-02-13] MEDS: LOSARTAN POTASSIUM 25 MG TAB PO SCH ×2 (09:04→09:13)
[2021-02-13] MEDS: PSYLLIUM 58.6% POWDER PACKET PO SCH (09:05)
[2021-02-13] MEDS: FAMOTIDINE 20 MG in SYRINGE 3 ML IV SCH (09:13)
--- NOTE | 2021-02-13 10:27 | Cardiology Progress Note ---
Date of Service February 13, 2021 Assessment & Plan (1) Chest pain: (2) Coronary artery disease: (3) Hypertension: (4) Dyslipidemia: Plan: 1. Chest pain: Yesterday she felt that her chest discomfort was similar to her presentation with a myocardial infarction, today she feels it was different. I am little concerned about the rising troponin I would like to see it falling although she does not have any large vessel disease identified at catheterization yesterday. Consider adding nitrates or at least using sublingual nitroglycerin to see whether that helps relieve her discomfort. I would like to see her troponin peak and start to fall before sending her home. 2. Coronary disease: She has known coronary disease with bypass surgery in 2015. Although she has no progression of large vessel disease and her bypass grafts are open her symptoms could be due to small vessel disease or some other cause. We should continue risk factor modification. 3. Hypertension: Her blood pressure was quite elevated on presentation although it has improved significantly. Possibly this contributed to demand ischemia but I would like to see the troponin drop. 4. Dyslipidemia: She is on atorvastatin 40 mg daily as an outpatient. Admission and Anticipated Discharge Date Admission Date: February 12, 2021 Subjective She has continued to have discomfort, she is now describing her discomfort on presentation quite differently than what she described yesterday. She now believes that her chest discomfort is due to acid reflux and that her back discomfort is musculoskeletal. It has however continued although perhaps lessened. Physical Exam Physical Exam: Constitutional: Alert, cooperative and in no distress. HEENT: Unremarkable Neck: No jugular venous distention, carotid pulses are normal and equal bilaterally without bruits. Pulmonary: Clear to auscultation bilaterally. Cardiac: Regular rhythm with no murmur, gallop or rub. Abdomen: Soft, nontender with normal bowel sounds. Extremities: No edema. Distal pulses intact. Neurologic: No focal findings. Gait is steady. Skin: No rash, ecchymoses or petechiae. Results & Data ([facility]) Vital Signs (Past 12 Hours) Vital Signs Temp Pulse Pulse Resp BP Pulse Ox 02/13/21 08:21 36.8 C 62 18 122/60 100 02/13/21 07:44 68 02/13/21 07:06 96 02/13/21 03:00 37.2 C 61 16 125/55 L 90 02/13/21 00:20 37.3 C 69 20 123/68 98 02/12/21 23:02 57 L Laboratory Results Cardiac Enzymes 02/12/21 Range/Units 16:03 Troponin I 0.116 H* (0-0.045) ng/ml CBC 02/13/21 Range/Units 06:05 WBC 3.43 L (4.8-10.8) K/uL RBC 3.56 L (4.2-5.4) M/uL Hgb 11.3 L (12.0-16.0) g/dL Hct 32.8 L (37-47) % Plt Count 176 (130-400) K/uL Neut # (Auto) 2.50 (1.4-6.5) K/uL Lymph # (Auto) 0.54 L (1.2-3.4) K/uL [place] # (Auto) 0.39 (0.11-0.59) K/uL Eos # (Auto) 0.00 (0-0.5) K/uL Baso # (Auto) 0.00 (0-0.2) K/uL Comprehensive Metabolic Panel 02/13/21 Range/Units 06:05 Sodium 131 L D (136-145) mmol/L Potassium 4.2 (3.5-5.1) mmol/L Chloride 100 (98-107) mmol/L Carbon Dioxide 25 (21-32) mmol/L BUN 11 (7-18) mg/dl Creatinine 0.71 (0.6-1.2) mg/dl Glucose 95 (70-99) mg/dl Calcium 8.7 (8.5-10.1) mg/dl Intake and Output 02/12/21 02/13/21 02/13/21 22:59 06:59 14:59 Intake Total 250 / 250 Balance 250 / 250 Intake: IV 250 / 250 Sodium Chloride 0.9% 250 ml @ 250 / 250 75 mls/hr IV .Q3H20M [facility] Rx#: [id number] Other: Other Intake Source NPO # Unmeasured Voids 1 Weight 68.1 kg 67.9 kg Weight Measurement Method Built in [facility] Care Time/CCT Total # of Minutes Spent Total Time Spent with Patient: Total time spent is greater than 50% in coordination of care (as documented) at patient's floor/unit and/or counseling patient: Coding Level of Care Code 99185 Subseq Hosp Care Lvl 3 Diagnoses Chest pain R07.9 Chest pain type: unspecified Coronary artery disease I25.110 Associated angina: with unstable angina Coronary Disease-Associated Artery/Lesion type: [place] artery [place] vs. transplanted heart: [place] heart Hypertension I10 Hypertension type: primary hypertension Dyslipidemia E78.5 (1) Coronary artery disease Associated angina: with unstable angina Coronary Disease-Associated Artery/Lesion type: [place] artery [place] vs. transplanted heart: [place] heart Qualified Code(s): I25.110 - Atherosclerotic heart disease of [place] coronary artery with unstable angina pectoris (2) Chest pain Chest pain type: unspecified Qualified Code(s): R07.9 - Chest pain, unspecified (3) Hypertension Hypertension type: primary hypertension Qualified Code(s): I10 - Essential (primary) hypertension
[2021-02-13] MEDS ORDERED: PANTOprazole 40 MG TAB PO SCH (13:45)
[2021-02-13] MEDS ORDERED: ISOSORBIDE MONONITRATE 20 MG TAB PO ONE (13:55)
[2021-02-13] MEDS: MoRPHine SULFATE 2 MG/ML CARP IV PRN (16:21)
[2021-02-13] MEDS: ATORVASTATIN 40 MG TAB PO SCH (21:23)
[2021-02-13] MEDS: POLYETHYLENE (MIRALAX) 17 GM PACK PO SCH (21:23)
[2021-02-13] MEDS: ZOLPIDEM TARTRATE 5 MG TAB PO PRN (21:25)
[2021-02-13] MEDS: FAMOTIDINE 20 MG TAB PO SCH (22:20)
[2021-02-14] MEDS: HYDROCODONE/ACETAMOPHEN 5/325MG TAB PO PRN ×3 (01:03→12:14)
[2021-02-14] MEDS ORDERED: LEVOTHYROXINE SODIUM 88 MCG TABLET PO SCH (06:30)
[2021-02-14 06:54] LABS: BUN Creatinine Ratio 21.6 (10-20); Calcium 8.6 mg/dl (8.5-10.1); Creatinine Clr Calc Pharmacy 74.3 ml/min; Est GFR (African American) 103.8 ml/min; Est GFR (Non-African American) 89.5 ml/min; Potassium 3.9 mmol/L (3.5-5.1)
[2021-02-14 07:06] LABS: Troponin I 0.484 ng/ml (0-0.045)
--- NOTE | 2021-02-14 08:16 | Discharge Summary ---
Date of Service February 14, 2021 Admission HPI Per Admitting Provider 76 yo F hx CABG 5 years ago, HTN, autoimmune disease, mitral and aortic regurg, HLD in the ER this am for complaints of chest pain during the day yesterday. States that around noon on friday she started having symptoms of reflux that weren't going away. Was able to go about and do regular household tasks and go on half hour walk in the afternoon without restriction. Near bedtime at 10 pm she noted that the pain was still there and not going away. States that it felt like reflux and a sharp pain that she thought was her stomach, but felt similar to the pain prior to her CABG. She had been taking her blood pressure throughout the afternoon and noted it was going as high as 190 and decided to come to the ER at that time. Follows with Dr. Martinez. Some improvement in pain after receiving nitro in the ER. - N/V/D. - lightheadedness/dizziness/trouble walking. No new numbness/tingling. no edema. no trouble breathing/pleuritic chest pain. Admission Exam Per Admitting Provider Constitutional: in no apparent distress, sitting comfortably in bed. Eyes: EOMI, pupils equal and reactive bilaterally, no scleral icterus Cardiac: RRR, no murmurs, gallops or rubs. Normal S1, S2 Pulm: CTA BL, no wheezes, rhonchi, crackles or rubs, moving air well throughout both lungs Abd: soft, nontender, nondistended, normal bowel sounds, no rebound or guarding Extremities: 2+ peripheral pulses, no edema Neuro: no focal deficits, moving all 4 limbs, A&Ox3 Principal Diagnosis Chest pain Discharge Exam Constitutional: well-appearing, no acute distress HEENT: NCAT, no conjunctival injection CV: regular rhythm, no murmur appreciated, extremities well-perfused, no LE edema Resp: CTABL, no wheezes/rales/rhonchi appreciated, no increased work of breathing GI: soft, nondistended, nontender, BS normoactive MSK: no gross deformities appreciated, chest pain not reproducible with palpation Skin: warm, dry, no rash appreciated Neuro: AOx4, no focal neurological deficits appreciated Discharge Data Allergies Allergy/AdvReac Type Severity Reaction Status Date / Time sulfamethoxazole Allergy Intermediate severe Verified 02/12/21 02:33 stiff neck, nausea erythromycin base Allergy Unknown UNKNOWN - Verified 02/12/21 02:33 A CHILD trimethoprim AdvReac Intermediate SEVERE Verified 02/12/21 02:33 STIFF NECK, NAUSEA, "HEARD BONES CRUNCH X2" amoxicillin AdvReac Mild Gastrointestinal Verified 02/12/21 02:33 Upset doxycycline AdvReac Mild nausea / Verified 02/12/21 02:33 vomiting / syncope Consultations 02/12/21 03:40 ED Decision to Admit Stat 02/12/21 10:02 Consult Cardiology Routine Procedures Performed Operation Date: 02/12/21 12:00 Actual Procedures p Cath, Left w/Cors Vent Grafts - Ray Rea MD s Ultrasound Vascular Access - Ray Rea MD s Cineradiography w/Routine Exam - Ray Rea MD Ordered Studies 02/12/21 11:32 CL Cath Imgs for PACS use only Routine 02/12/21 16:49 CT angio chest PE protocol Stat Hospital Course (1) Chest pain: Chest pain On admission, patient's EKG was noted to have nonspecific ST segment changes (compared to prior EKG in 2015), and echo showed EF 45-50%, mild wall hypokinesis, and borderline pulmonary HTN, which represented no significant change compared to prior echo (02/2020). Cardiology was consulted. Patient's CP persisted, and troponin continued to rise, and so cardiac catherization was performed, which found: 1. Severe chronic multivessel coronary artery disease 30% left main Diffuse proximal to mid LAD disease before 100% mid chronic LAD occlusion 70% ostial circumflex Subtotally occluded small D1, 95% ostial small D3 2. Widely patent INFANTE to LAD, SVG to OM 3 3. Elevated intracardiac filling pressure No stents were placed during catheterization. Troponin level peaked on hospital day two. Patient was trialed on isosorbide monohydrate, which did result in an improvement in chest pain. Patient was discharged on hospital day three in stable condition. Patient was hemodynamically stable throughout the entirety of this hospitalization. Patient was intended to be discharged with isosorbide mononitrate, but due to local pharmacies not carrying this, patient was discharged with a two-week course of isosorbide dinitrate, with cardiology follow-up arranged for about one week after discharge. PCP follow-up was also recommended. Neutropenia, anemia Patient was noted on admission to be to be neutropenic as well as mildly anemic. Patient was without findings concerning for acute infection. Neutropenic precautions were ordered. SPEP/UPEP assays were drawn, and were still pending at the time of discharge. PCP follow-up is recommended. GERD Patient's preexisting GERD was considered as a possible source of chest pain; however, various treatments (pantoprazole, sucralfate, maalox) did not result in a substantial improvement in patient's chest pain. Patient was discharged with famotidine, and close PCP follow-up was recommended. Chronic hyponatremia Patient was noted with hyponatremia to 124 on admission, and patient's history of chronic hyponatremia was noted. Patient was without signs of acute hyponatremia. This was felt to be noncontributory to patient's presenting symptoms, and no treatment was indicated. PCP follow-up was recommended. HTN Patient's home dose metoprolol and lasix were continued during this hospitalization. Hypothyroidism Patient's home dose levothyroxine was continued during this hospitalization. Total Time Total Time Spent Total Time Spent (In Minutes): see attending documentation Discharge Plan Discharge Items Patient Disposition: Home - Self-Care Reason For Visit: CHEST PAIN, EKG CHANGES Discharge Diagnosis: Chest pain Condition on Discharge: Good Activity: Resume your previous activity Non-emergency contact: Primary Care Provider Call non-emergency contact if: your symptoms worsen and your pain is worsening Follow-up/Referrals: Supa Aggarwal MD [Primary Care Provider] - (Dr. Aggarwal is unavailable.) Teddy Martinez Jr, MD, [facility] [Physician] - Lorin Lambert PA-C [Physician Marketing Representative] - 02/22/21 10:30 am (Dr. Aggarwal is unavailable. Please follow up with Lorin Lambert PA-C on 02/22/21 at 10:30 am. Please arrive to the office at 10:15 am for your appointment. If you are unable to keep this appointment, please call the office to reschedule at [phone].) Diet: Heart Healthy and Low Sodium (2gm) Addtl Attending Provider Instructions: You were admitted to the hospital for chest pain. A cardiac catheterization was performed, but no new stents were placed. While we have not discovered the exact source of your chest pain, we have ruled out a number of concerning possibilities, and we feel it is safe for you to return home. A discharge summary will be sent to your primary care physician to ensure continuity of care. Please bring this discharge summary with you to your next office appointment so that your provider can review it at that time. Follow-up appointments: Make a follow-up appointment with your PCP within the next week. It is very important that you follow up with them shortly after discharge from the hospital. It is also important that you attend your cardiology appointment next week with Dr. Martinez. Keep all your follow-up appointments as already scheduled. If you cannot make an appointment, notify your provider. Medications: Your medication list has been reviewed and reconciled upon discharge to ensure accuracy and continuity of care. An updated list of all your medications is included with your hospital discharge paperwork. Please review this list closely, and make note of any changes. * We sent a new medication called famotidine to your pharmacy. Famotidine is an urtu-wkz-vmbagcn medicine, so insurance might not cover it; however, it is relatively inexpensive to buy from any pharmacy. Take famotidine (20mg) one tablet twice daily. * We sent a new medication called isosorbide mononitrate to your pharmacy. This medicine can help with chest pain. We have sent in a two-week supply, intended to last until your appointment with Dr. Martinez, who can help you decide if this is a medicine you should continue long-term. Take isosorbide mononitrate (20mg) twice daily until you follow up with Dr. Martinez. * We sent a new medication called losartan (aka Cozaar) to your pharmacy. Take losartan (25mg) one capsule each morning. Take your medications as instructed; do not skip a dose of your medicines. Make sure all of your doctors know every medicine you are taking (including njhs-ymx-mbxxpdx medicines, vitamins, and supplements). Call your primary care provider before taking any new medicines (including mosv-uxh-ktkorrf medicines, vitamins, and supplements), because some of these may interact with your current medications, or may make your symptoms worse. Tell your primary care provider if you cannot afford your medications. CONTACT YOUR PRIMARY CARE PROVIDER if you experience any of the following: Worsening chest pain Shortness of breath Difficulty following your treatment plan, or difficulty taking medications CALL 911 OR GO TO THE EMERGENCY DEPARTMENT if you experience any of the following: Sudden, severe abdominal pain or nausea/vomiting Severe chest pain, or chest pain that radiates (moves) to your jaw or arm Sudden, severe shortness of breath or difficulty breathing Thank you for allowing us to participate in your care. Pending Studies at Discharge: Yes Studies:: SPEP/UPEP Stand-Alone Forms: [facility] [employer] Medications and DC Order Prescriptions: New isosorbide mononitrate 20 mg tablet 20 mg PO BID Qty: 30 RF: 0 losartan 25 mg Tablet 25 mg PO QAM Qty: 30 RF: 2 isosorbide dinitrate 5 mg tablet 5 mg PO DAILY Qty: 14 RF: 0 Continued Premarin 0.625 mg/gram cream 0.3125 mg PV .COMPLEX Qty: 30 RF: 3 levothyroxine [Synthroid] 88 mcg tablet 88 mcg PO 3XWK Qty: 90 RF: 1 levothyroxine [Synthroid] 112 mcg tablet 112 mcg PO 4XWK 90 Days Qty: 90 RF: 3 Gamunex-C 40 gram/400 mL (10 %) solution See Rx Instructions IV .COMPLEX Qty: 400 RF: 11 potassium chloride 10 mEq tablet extended release 10 meq PO DAILY PRN (Reason: when taking lasix) Qty: 20 RF: 1 furosemide [Lasix] 20 mg tablet 20 mg PO DAILY PRN (Reason: weight gain over 3 pounds ) Qty: 20 RF: 1 metoprolol tartrate 25 mg tablet 12.5 mg PO BID Qty: 180 RF: 3 zolpidem [Ambien] 5 mg tablet 2.5 - 5 mg PO HS PRN (Reason: insomnia) Qty: 15 RF: 0 hydrocodone-acetaminophen 5-325 mg tablet 1 tab PO .COMPLEX Qty: 131 RF: 0 esomeprazole magnesium 40 mg capsule,delayed release(DR/EC) 40 mg PO QAM Qty: 90 RF: 0 aspirin 81 mg tablet,delayed release (DR/EC) 81 mg PO DAILY RF: 0 cholecalciferol (vitamin D3) 25 mcg (1,000 unit) capsule 25 mcg PO QPM RF: 0 minoxidil [Rogaine] 2 % Solution 1 ml TOPICAL DAILY RF: 0 polyethylene glycol 3350 [Miralax] 17 gram Powder In Packet 17 g PO HS RF: 0 Restasis 0.05 % dropperette 1 drp ophthalmic (eye) BID RF: 0 aluminum-magnesium hydroxide 200-200 mg/5 mL Suspension 5 ml PO Q6H PRN (Reason: Acid Reflux) RF: 0 Benefiber Clear SF (dextrin) 3 gram/3.5 gram Powder In Packet 1 packet PO DAILY RF: 0 atorvastatin [Lipitor] 20 mg tablet 40 mg PO HS RF: 0 biotin 5,000 mcg Tablet, Sublingual 5,000 mcg SUBLINGUAL DAILY RF: 0 Discharge Orders: Discharge Order (Routine); Ordered 02/14/21 Ordered By: Winston Montoya Admission Data Admit Date/Time: 02/12/21 02:33 Attending Provider: Rosi White Admit Provider: Janet Gallego Primary Care Provider: Supa Aggarwal Other Providers: Ariel Peterson Charles C. Other Interventions: Discharge Summary Assessment (RN) Last Done: 02/14/21 11:56 Supervising Physician Co-Signing Physician Notes Resident Physician Supervision Note: I independently interviewed and examined the patient and verified the astorga history and physical, reviewed labs and image studies and agree with resident Dr. Montoya findings and care plan. Resident Activity Tracking Resident Involvement: Resident Care Provided Care Provided: Adult Hospital Medicine
[2021-02-14] MEDS: ASPIRIN 81 MG ECTAB PO SCH (08:45)
[2021-02-14] MEDS: METOPROLOL TARTRATE 25 MG TAB PO SCH (08:45)
[2021-02-14] MEDS: FAMOTIDINE 20 MG TAB PO SCH (08:45)
--- NOTE | 2021-02-14 09:02 | Electrocardiogram Report ---
Test Reason : Blood Pressure : / mmHG Vent. Rate : 065 BPM Atrial Rate : 065 BPM P-R Int : 188 ms QRS Dur : 134 ms QT Int : 416 ms P-R-T Axes : 068 -27 054 degrees QTc Int : 432 ms Normal sinus rhythm Possible Left atrial enlargement Right bundle branch block Left ventricular hypertrophy with repolarization abnormality Abnormal ECG When compared with ECG of 12-FEB-2021 09:52, No significant change was found Confirmed by Malik Gaona ([id number]) on 02/14/2021 9:02:23 AM Referred By: REFERRED SELF Confirmed By:Malik Gaona
[2021-02-14] MEDS: PSYLLIUM 58.6% POWDER PACKET PO SCH (09:04)
[2021-02-14] MEDS: ENOXAPARIN INJ 40 MG/0.4 ML SYR SQ SCH (09:04)
[2021-02-14] MEDS: LOSARTAN POTASSIUM 25 MG TAB PO SCH (09:04)
--- NOTE | 2021-02-14 09:04 | Electrocardiogram Report ---
Test Reason : Blood Pressure : / mmHG Vent. Rate : 068 BPM Atrial Rate : 068 BPM P-R Int : 168 ms QRS Dur : 128 ms QT Int : 430 ms P-R-T Axes : 079 -21 062 degrees QTc Int : 457 ms Normal sinus rhythm Possible Left atrial enlargement Right bundle branch block Possible Lateral infarct , age undetermined Abnormal ECG When compared with ECG of 13-FEB-2021 04:41, (unconfirmed) No significant change was found Confirmed by Malik Gaona ([id number]) on 02/14/2021 9:04:09 AM Referred By: REFERRED SELF Confirmed By:Malik Gaona
[2021-02-14] MEDS: ALUMINUM/MAGNESIUM SUSP 30 ML UDC PO PRN (10:41)
--- NOTE | 2021-02-14 13:02 | Cardiology Progress Note ---
Date of Service February 14, 2021 Assessment & Plan (1) Chest pain: (2) Coronary artery disease: (3) Hypertension: (4) Dyslipidemia: Plan: 1. Chest pain: She continues to have discomfort but it seems that it is perhaps better and more like her chronic discomfort. With her troponin now dropping, peaking yesterday, I think it is safe to send her home. 2. Coronary disease: She has known coronary disease with bypass surgery in 2015. Although she has no progression of large vessel disease and her bypass grafts are open her symptoms and enzyme pattern rise and fall suggest a small vessel occlusion. There is no role for intervention but I would continue risk factor modification. 3. Hypertension: Her blood pressure is quite elevated at times, it appears quite labile. We may have to be satisfied with this degree of control. 4. Dyslipidemia: She is on atorvastatin 40 mg daily as an outpatient and I would continue that. I will make sure she has a follow-up appointment in the next several weeks. Admission and Anticipated Discharge Date Admission Date: February 12, 2021 Subjective I believe she is feeling better today, although she still has a lot of various discomforts but apparently these are for the most part chronic. She does complain of a headache which could be in part due to the nitrates. Physical Exam Physical Exam: Constitutional: Alert, cooperative and in no distress. HEENT: Unremarkable Neck: No jugular venous distention, carotid pulses are normal and equal bilaterally without bruits. Pulmonary: Clear to auscultation bilaterally. Cardiac: Regular rhythm with no murmur, gallop or rub. Abdomen: Soft, nontender with normal bowel sounds. Extremities: No edema. Distal pulses intact. Neurologic: No focal findings. Gait is steady. Skin: No rash, ecchymoses or petechiae. Results & Data ([facility]) Vital Signs (Past 12 Hours) Vital Signs Temp Pulse Pulse Resp BP BP BP 02/14/21 11:56 36.9 C 58 L 21 138/76 145/71 H 157/72 H 02/14/21 11:37 36.9 C 58 L 21 157/72 H 02/14/21 08:00 71 02/14/21 07:56 36.6 C 77 18 144/66 H 02/14/21 03:00 36.7 C 67 20 118/72 Pulse Ox 02/14/21 11:56 97 02/14/21 11:37 97 02/14/21 08:00 02/14/21 07:56 92 02/14/21 03:00 97 Laboratory Results Cardiac Enzymes 02/13/21 02/13/21 02/14/21 Range/Units 15:47 19:26 05:46 Troponin I 0.617 H* 0.588 H* 0.484 H* (0-0.045) ng/ml Comprehensive Metabolic Panel 02/14/21 Range/Units 05:46 Sodium 130 L (136-145) mmol/L Potassium 3.9 (3.5-5.1) mmol/L Chloride 99 (98-107) mmol/L Carbon Dioxide 26 (21-32) mmol/L BUN 12 (7-18) mg/dl Creatinine 0.58 L (0.6-1.2) mg/dl Glucose 86 (70-99) mg/dl Calcium 8.6 (8.5-10.1) mg/dl Intake and Output 02/13/21 02/14/21 02/14/21 22:59 06:59 14:59 Intake Total 400 / 400 Balance 400 / 400 Intake: Oral 400 / 400 Other: Other Intake Source sips Weight 68 kg 68 kg Weight Measurement Method Built in [facility] Patient Weight 02/15/21 06:59 Weight 68 kg Diagnostic Findings Telemetry: Sinus rhythm, rate generally in the 50 to 60 bpm range PG Care Time/CCT Total # of Minutes Spent Total Time Spent with Patient: Total time spent is greater than 50% in coordination of care (as documented) at patient's floor/unit and/or counseling patient: Coding Level of Care Code 59199 Subseq Hosp Care Lvl 2 Diagnoses Chest pain R07.9 Chest pain type: unspecified Coronary artery disease I25.110 Coronary Disease-Associated Artery/Lesion type: [place] artery [place] vs. transplanted heart: [place] heart Associated angina: with unstable angina Hypertension I10 Hypertension type: primary hypertension Dyslipidemia E78.5 (1) Chest pain Chest pain type: unspecified Qualified Code(s): R07.9 - Chest pain, unspecified (2) Coronary artery disease Coronary Disease-Associated Artery/Lesion type: [place] artery [place] vs. transplanted heart: [place] heart Associated angina: with unstable angina Qualified Code(s): I25.110 - Atherosclerotic heart disease of [place] coronary artery with unstable angina pectoris (3) Hypertension Hypertension type: primary hypertension Qualified Code(s): I10 - Essential (p rimary) hypertension
--- NOTE | 2021-02-14 15:27 | Electrocardiogram Report ---
Test Reason : Blood Pressure : / mmHG Vent. Rate : 077 BPM Atrial Rate : 077 BPM P-R Int : 176 ms QRS Dur : 132 ms QT Int : 396 ms P-R-T Axes : 061 -23 073 degrees QTc Int : 448 ms Normal sinus rhythm Possible Left atrial enlargement Right bundle branch block Left ventricular hypertrophy Cannot rule out Septal infarct , age undetermined Abnormal ECG When compared with ECG of 20-MAY-2016 06:33, Right bundle branch block is now Present Minimal criteria for Septal infarct are now Present Confirmed by Malik Gaona ([id number]) on 02/14/2021 3:27:07 PM Referred By: REFERRED SELF Confirmed By:Malik Gaona
[2021-02-15 05:04] LABS: Albumin 3.5 g/dL (3.8-4.8); Alpha 1 Globulin 0.3 g/dL (0.2-0.3); Alpha 2 Globulin 0.8 g/dL (0.5-0.9); Beta-1-Globulin 0.4 g/dL (0.4-0.6); Beta-2-Globulin 0.4 g/dL (0.2-0.5); Gamma Globulin 3.1 g/dL (0.8-1.7); Monoclonal Protein Band 1 DNR g/dL (NONE DETECTED); Monoclonal Protein Band 2 DNR g/dL (NONE DETECTED); Monoclonal Protein Band 3 DNR g/dL (NONE DETECTED); Total Protein 8.5 g/dL (6.1-8.1)
--- NOTE | 2021-02-15 19:52 | Billing Data ---
Date of Service February 15, 2021 Coding Level of Care Code INT OBSERVATION CARE 70M LVL 3
== END 2021-02-14 13:02 | disposition home or self-care (01) ==
LOC: ED → 2N → SUATTDRO 02:33 → 2N 06:14 → 2S 13:39